=== PATIENT | female | born 1955 | race Hispanic/Latino ===

== ENCOUNTER 2019-06-09 18:29 | Inpatient (IN) | payer MEDICARE ==
--- NOTE | 2019-06-09 20:14 | Emergency Department Report ---
ED General Adult HPI - General Chief complaint: Recheck/Abnormal Lab/Rx Stated complaint: LAB WORK ABNORMAL Time Seen by Provider: 06/09/19 20:02 Source: patient, EMS Mode of arrival: Stretcher Limitations: No Limitations - History of Present Illness Initial comments: Patient is 64 years old female with history of hypertension, diabetes and chronic kidney disease. Patient also had history of coronary artery disease. Patient brought to the emergency room from [facility] for evaluation of abnormal labs. EMS did not bring any information about patient abnormal labs and said it was BUN creatinine was high. Patient is sitting comfortably in no acute distress. Patient is alert, oriented x3. Patient denied any symptoms. Patient specifically denies any chest pain, shortness of breath, cough fever chills. - Related Data Home Medications Medication Instructions Recorded Confirmed Last Taken Aspirin [Aspirin BABY CHEW TAB] 81 mg PO QDAY 06/10/19 06/10/19 Unknown Gabapentin [Neurontin] 400 mg PO BID 06/10/19 06/10/19 Unknown amLODIPine [Norvasc] 5 mg PO DAILY 06/10/19 06/10/19 Unknown cloNIDine [Catapres] 0.2 mg PO BID 06/10/19 06/10/19 Unknown Allergies Allergy/AdvReac Type Severity Reaction Status Date / Time No Known Allergies Allergy Unverified 06/09/19 18:40 ED Review of Systems ROS: Stated complaint: LAB WORK ABNORMAL Other details as noted in HPI Comment: All other systems reviewed and negative Constitutional: denies: chills, fever Respiratory: denies: cough, shortness of breath, SOB with exertion Cardiovascular: denies: chest pain Gastrointestinal: denies: abdominal pain, nausea, vomiting, diarrhea, hematemesis, melena, hematochezia Genitourinary: denies: urgency Musculoskeletal: denies: back pain Neurological: denies: headache, weakness, numbness, paresthesias, confusion, ab normal gait ED Past Medical Hx - Past Medical History Previous Medical History?: Yes Hx Hypertension: Yes Hx Heart Attack/AMI: Yes Hx Diabetes: Yes Hx Renal Disease: Yes Additional medical history: Rheumatoid Arthritis - Social History Smoking Status: Never Smoker Substance Use Type: None - Medications Home Medications: Home Medications Medication Instructions Recorded Confirmed Last Taken Type Aspirin [Aspirin BABY CHEW TAB] 81 mg PO QDAY 06/10/19 06/10/19 Unknown History Gabapentin [Neurontin] 400 mg PO BID 06/10/19 06/10/19 Unknown History amLODIPine [Norvasc] 5 mg PO DAILY 06/10/19 06/10/19 Unknown History cloNIDine [Catapres] 0.2 mg PO BID 06/10/19 06/10/19 Unknown History ED Physical Exam - General Limitations: No Limitations General appearance: alert, in no apparent distress - Head Head exam: Present: atraumatic, normocephalic, normal inspection - Eye Eye exam: Present: normal appearance, PERRL - ENT ENT exam: Present: normal exam, normal orophraynx, mucous membranes moist - Neck Neck exam: Present: normal inspection, full ROM. Absent: tenderness, meningismus, lymphadenopathy, thyromegaly - Respiratory Respiratory exam: Present: normal lung sounds bilaterally - Cardiovascular Cardiovascular Exam: Present: regular rate, normal rhythm, normal heart sounds - GI/Abdominal GI/Abdominal exam: Present: soft, normal bowel sounds. Absent: distended, tenderness, guarding, rebound, rigid, organomegaly, mass, bruit, pulsatile mass, hernia - Extremities Exam Extremities exam: Present: normal inspection, full ROM, normal capillary refill. Absent: pedal edema, calf tenderness - Back Exam Back exam: Present: normal inspection, full ROM. Absent: CVA tenderness (R), CVA tenderness (L) - Neurological Exam Neurological exam: Present: alert, oriented X3, CN II-XII intact, normal gait, reflexes normal - Psychiatric Psychiatric exam: Present: normal mood - Skin Skin exam: Present: warm, intact, normal color ED Course Vital Signs 06/09/19 06/09/19 06/09/19 20:05 20:46 21:45 Temperature 97.9 F Pulse Rate 79 86 81 Respiratory 12 12 12 Rate Blood Pressure 173/77 172/76 Blood Pressure 168/82 [Left] O2 Sat by Pulse 96 96 97 Oximetry 06/09/19 06/09/19 06/09/19 22:15 23:00 23:15 Temperature Pulse Rate 82 88 81 Respiratory 12 14 13 Rate Blood Pressure 171/73 169/76 162/75 Blood Pressure [Left] O2 Sat by Pulse 97 96 94 Oximetry 06/09/19 06/09/19 06/10/19 23:30 23:45 00:00 Temperature Pulse Rate 82 81 88 Respiratory 12 12 13 Rate Blood Pressure 169/83 168/85 168/85 Blood Pressure [Left] O2 Sat by Pulse 96 96 95 Oximetry ED Medical Decision Making - Lab Data Result diagrams: 06/09/19 20:59 06/09/19 20:59 - EKG Data -: EKG Interpreted by Me EKG shows normal: sinus rhythm Rate: normal - Radiology Data Radiology results: report reviewed - Medical Decision Making Patient is 64 years old female with history of hypertension, diabetes and chronic kidney disease. Patient also had history of coronary artery disease. Patient brought to the emergency room from [facility] for evaluation of abnormal labs. EMS did not bring any information about patient abnormal labs and said it was BUN creatinine was high. Patient is sitting comfortably in no acute distress. Patient is alert, oriented x3. Patient denied any symptoms. Patient specifically denies any chest pain, shortness of breath, cough fever chills. Patient labs showed a creatinine of 6.1 and BUN of 71 and a potassium of 5.1. Patient discussed with dramatic coach Dr. Reji Saravia, he advised to admit patient to the hospital, continue gentle hydration and Kayexalate 15 g p.o. and patient to get an ultrasound of the kidney tomorrow. I discussed the patient with Dr. Janeth Emanuel, she agreed to admit the patient to medical service for further management. Critical Care Time: Yes Critical care time in (mins) excluding proc time.: 30 Critical care attestation.: If time is entered above; I have spent that time in minutes in the direct care of this critically ill patient, excluding procedure time. ED Disposition Clinical Impression: Acute renal failure Disposition: 09 OP ADMIT IP TO THIS HOSP Is pt being admited?: Yes Condition: Stable
[2019-06-09 21:16] LABS: Basophils # (Auto) 0.1 K/mm3 (0.0-0.1); Basophils % (Auto) 0.7 % (0.0-1.8); Eosinophils # (Auto) 0.3 K/mm3 (0.0-0.4); Hematocrit 33.7 % (30.3-42.9); Hemoglobin 11.3 gm/dl (10.1-14.3); Lymphocytes % (Auto) 10.6 % (13.4-35.0); Mean Corpuscular HGB Conc 33 % (30-34); Mean Corpuscular Volume 90 fl (79-97); Monocytes # (Auto) 0.7 K/mm3 (0.0-0.8); Monocytes % (Auto) 7.2 % (0.0-7.3); Platelet Count 227 K/mm3 (140-440); Red Blood Count 3.76 M/mm3 (3.65-5.03); Red Cell Distribution Width 14.5 % (13.2-15.2)
[2019-06-09 21:40] LABS: Albumin 2.8 g/dL (3.9-5); Calcium 8.3 mg/dL (8.4-10.2)
[2019-06-09 22:56] LABS: Bilirubin,Urine NEG (Negative); Blood,Urine SM (Negative); Color,Urine Straw (Yellow); Urobilinogen,Urine < 2.0 mg/dL (<2.0)
[2019-06-09] MEDS ORDERED: SODIUM POLYSTYRENE 15 GM/60 ML ORAL LIQD PO ONE (23:51)
[2019-06-09] MEDS ORDERED: SODIUM CHLORIDE 0.9% 1000 ML 1,000 ML IV ONE (23:51)
--- NOTE | 2019-06-09 23:54 | History and Physical Report ---
History of Present Illness History of present illness: 64-year-old woman history of hypertension, diabetes, coronary artery disease, hyperlipidemia, chronic kidney disease was [facility] the [facility] for [facility] labs. There was a change in her renal function, she does not know her baseline creatinine. The patient denies any complaints, she will be admitted for acute on chronic renal failure Review Of Systems: Constitutional: no weight loss, fever, chills Ears, eyes, nose, mouth and throat: no nasal congestion, no nasal discharge, no sinus pressure, blurry vision, diplopia Neck: No neck pain or rigidity. Cardiovascular: No palpitations, chest pain Respiratory: No shortness of breath, cough Gastrointestinal: No hematochezia, abdominal pain Genitourinary : no dysuria, frequency Musculoskeletal: no muscle ache , joint pain Integumentary: no rash, no pruritis Neurological: no parathesias, focal weakness Endocrine: no cold or heat intolerance, no polyuria or polydipsia Hematologic/Lymphatic: no easy bruising, no easy bleeding, no gland swelling Allergic/Immunologic: no urticaria, no angioedema. PAST MEDICAL HISTORY: hypertension, diabetes, coronary artery disease, hyperlipidemia, chronic kidney diseas PAST SURGICAL HISTORY: Tonsillectomy, surgery on leg SOCIAL HISTORY: Denies alcohol, tobacco, drugs FAMILY HISTORY: Hypertension Medications and Allergies Allergies Allergy/AdvReac Type Severity Reaction Status Date / Time No Known Allergies Allergy Unverified 06/09/19 18:40 Home Medications Medication Instructions Recorded Confirmed Last Taken Type Aspirin [Aspirin BABY CHEW TAB] 81 mg PO QDAY 06/10/19 06/10/19 Unknown History Gabapentin [Neurontin] 400 mg PO BID 06/10/19 06/10/19 Unknown History amLODIPine [Norvasc] 5 mg PO DAILY 06/10/19 06/10/19 Unknown History cloNIDine [Catapres] 0.2 mg PO BID 06/10/19 06/10/19 Unknown History Active Meds: Active Medications Sodium Chloride (Nacl 0.9% 1000 Ml) 1,000 mls @ 125 mls/hr IV ONCE ONE Stop: 06/10/19 07:50 Exam - Physical Exam Narrative exam: Gen. appearance: Patient lying in bed, no apparent distress HEENT: Normocephalic, atraumatic, pupils equally round and reactive to light, extraocular movement intact, and no sclericterus,. No JVD or thyromegaly or nodu le,neck supple, no carotid bruit ,mucous membranes moist, no exudate or erythema Heart: S1, S2, regular rate and rhythm Lungs: Clear bilaterally, breathing comfortable Abdomen: Positive bowel sounds, nontender, nondistended, no organomegaly Extremity: no edema, cyanosis, clubbing Skin: No rash, nodules, warm, dry Neuro: speech is fluent, cranial nerves II to XII intact motor and sensory intact - Constitutional Vitals: Temp Pulse Resp BP Pulse Ox 97.9 F 79 12 168/82 96 06/09/19 20:05 06/09/19 20:05 06/09/19 20:05 06/09/19 20:05 06/09/19 20:05 Results - Labs CBC & Chem 7: 06/09/19 20:59 06/09/19 20:59 Labs: Abnormal lab results 06/09/19 06/09/19 06/09/19 Range/Units 20:59 20:59 22:13 Lymph % (Auto) 10.6 L (13.4-35.0) % Lymph # 1.0 L (1.2-5.4) K/mm3 Seg Neutrophils % 78.5 H (40.0-70.0) % Potassium 5.1 H (3.6-5.0) mmol/L Carbon Dioxide 19 L (22-30) mmol/L BUN 71 H (7-17) mg/dL Creatinine 6.1 H (0.7-1.2) mg/dL Calcium 8.3 L (8.4-10.2) mg/dL Total Protein 6.2 L (6.3-8.2) g/dL Albumin 2.8 L (3.9-5) g/dL Urine WBC (Auto) 8.0 H (0.0-6.0) /HPF Assessment and Plan Assessment Acute on chronic renal failure Check ultrasound of the kidneys, consult renal, start IV fluids Pneumonia Start IV Levaquin, follow culture Hyperkalemia status post Kayexalate, follow potassium level Diabetes Check fingersticks initiate insulin sliding scale Hypertension Continue appropriate outpatient medications DVT prophylax
--- NOTE | 2019-06-10 00:42 | XRay Report ---
CHEST 1 VIEW INDICATION: DYSPNEA. COMPARISON: None. FINDINGS: Support devices: None. Heart: Normal. Lungs/Pleura: There are small bilateral pleural effusions. Adjacent bibasilar opacities may be due to compressive atelectasis but are nonspecific. Upper lungs are clear. No pneumothorax. IMPRESSION: 1. Bibasilar pleural-parenchymal opacities, right greater than left. Signer Name: Prince Altman MD Signed: 06/10/2019 12:37 AM Workstation Name: [id number]
[2019-06-10] MEDS ORDERED: ACETAMINOPHEN 325 MG TAB PO PRN (02:20)
[2019-06-10] MEDS ORDERED: oxyCODONE /ACETAMINOPHEN 5-325MG TAB PO PRN (02:20)
[2019-06-10] MEDS ORDERED: ONDANSETRON 4 MG/2 ML INJ IV PRN (02:20)
[2019-06-10] MEDS: cefTRIAXone/NS 1 GM/50 ML 1 GM/50 ML BAG IV SCH ×2 (03:54→09:42)
[2019-06-10] MEDS ORDERED: DEXTROSE 50% IN WATER (25GM) 50 ML SYRINGE IV PRN (04:10)
[2019-06-10] MEDS ORDERED: SODIUM CHLORIDE 0.9% 1000 ML 1,000 ML IV SCH (04:30)
[2019-06-10 05:47] LABS: Basophils # (Auto) 0.1 K/mm3 (0.0-0.1); Basophils % (Auto) 0.7 % (0.0-1.8); Eosinophils # (Auto) 0.3 K/mm3 (0.0-0.4); Hematocrit 32.8 % (30.3-42.9); Hemoglobin 10.9 gm/dl (10.1-14.3); Lymphocytes # (Auto) 1.1 K/mm3 (1.2-5.4); Lymphocytes % (Auto) 11.2 % (13.4-35.0); Mean Corpuscular HGB Conc 33 % (30-34); Mean Corpuscular Volume 89 fl (79-97); Monocytes # (Auto) 0.8 K/mm3 (0.0-0.8); Monocytes % (Auto) 8.9 % (0.0-7.3); Platelet Count 205 K/mm3 (140-440); Red Blood Count 3.68 M/mm3 (3.65-5.03); Red Cell Distribution Width 14.4 % (13.2-15.2)
[2019-06-10 06:05] LABS: Calcium 8.2 mg/dL (8.4-10.2)
[2019-06-10] MEDS: INSULIN LISPRO 100 UNIT/ML SUB-Q SCH ×4 (08:25→21:31)
[2019-06-10] MEDS: amLODIPine 5 MG TAB PO SCH (09:38)
[2019-06-10] MEDS: ENOXAPARIN 30 MG/0.3 ML INJ SUB-Q SCH (09:39)
[2019-06-10] MEDS: cloNIDine 0.2 MG TAB PO SCH ×2 (09:39→21:29)
[2019-06-10] MEDS ORDERED: GABAPENTIN 400 MG CAP PO SCH (10:00)
[2019-06-10] MEDS ORDERED: ASPIRIN 81 MG TAB CHEW PO SCH (10:00)
--- NOTE | 2019-06-10 12:31 | Progress Note ---
Assessment and Plan Assessment and plan: Acute on chronic renal failure Check ultrasound of the kidneys, Nephrology consulted Cont iv fluids Bibasilar opacities To r/o pneumonia Cont IV Levaquin, follow culture Hyperkalemia resolved, status post Kayexalate, Diabetes Check fingersticks initiate insulin sliding scale Hypertension Continue appropriate outpatient medications DVT prophylax History Interval history: Patient sent in because of abnormal renal function Hospitalist Physical - Physical exam Narrative exam: GEN: Not in acute distress, lying in bed, obese HEENT: Normocephalic, atraumatic, Neck: supple, No JVD Lungs: Clear to auscultation ,no wheeze, heart;S1 and S2 reg, no murmurs, rubs or gallop Abd:soft, mild tender, mild distended, few bowel sounds Ext: No edema, no clubbing, no cyanosis Neuro: Awake,alert, oriented X 3, no focal neurological signs - Constitutional Vitals: Temp Pulse Resp BP Pulse Ox 98.3 F 83 18 179/80 95 06/10/19 08:35 06/10/19 10:38 06/10/19 04:06 06/10/19 08:35 06/10/19 08:35 Results - Labs CBC & Chem 7: 06/11/19 05:37 06/11/19 05:37 Labs: Laboratory Last Values WBC 9.4 K/mm3 (4.5-11.0) 06/10/19 05:28 RBC 3.68 M/mm3 (3.65-5.03) 06/10/19 05:28 Hgb 10.9 gm/dl (10.1-14.3) 06/10/19 05:28 Hct 32.8 % (30.3-42.9) 06/10/19 05:28 MCV 89 fl (79-97) 06/10/19 05:28 MCH 30 pg (28-32) 06/10/19 05:28 MCHC 33 % (30-34) 06/10/19 05:28 RDW 14.4 % (13.2-15.2) 06/10/19 05:28 Plt Count 205 K/mm3 (140-440) 06/10/19 05:28 Lymph % (Auto) 11.2 % (13.4-35.0) L 06/10/19 05:28 Hughes % (Auto) 8.9 % (0.0-7.3) H 06/10/19 05:28 Eos % (Auto) 3.0 % (0.0-4.3) 06/10/19 05:28 Baso % (Auto) 0.7 % (0.0-1.8) 06/10/19 05:28 Lymph # 1.1 K/mm3 (1.2-5.4) L 06/10/19 05:28 Hughes # 0.8 K/mm3 (0.0-0.8) 06/10/19 05:28 Eos # 0.3 K/mm3 (0.0-0.4) 06/10/19 05:28 Baso # 0.1 K/mm3 (0.0-0.1) 06/10/19 05:28 Seg Neutrophils % 76.2 % (40.0-70.0) H 06/10/19 05:28 Seg Neutrophils # 7.1 K/mm3 (1.8-7.7) 06/10/19 05:28 Sodium 143 mmol/L (137-145) 06/10/19 05:28 Potassium 4.6 mmol/L (3.6-5.0) 06/10/19 05:28 Chloride 108.4 mmol/L (98-107) H 06/10/19 05:28 Carbon Dioxide 22 mmol/L (22-30) 06/10/19 05:28 Anion Gap 17 mmol/L 06/10/19 05:28 BUN 74 mg/dL (7-17) H 06/10/19 05:28 Creatinine 5.9 mg/dL (0.7-1.2) H 06/10/19 05:28 Estimated GFR 7 ml/min 06/10/19 05:28 BUN/Creatinine Ratio 13 % 06/10/19 05:28 Glucose 102 mg/dL (65-100) H 06/10/19 05:28 POC Glucose 98 (70-105) 06/10/19 12:36 Calcium 8.2 mg/dL (8.4-10.2) L 06/10/19 05:28 Total Bilirubin 0.20 mg/dL (0.1-1.2) 06/09/19 20:59 AST 9 units/L (5-40) 06/09/19 20:59 ALT 8 units/L (7-56) 06/09/19 20:59 Alkaline Phosphatase 62 units/L (35-129) 06/09/19 20:59 Total Protein 6.2 g/dL (6.3-8.2) L 06/09/19 20:59 Albumin 2.8 g/dL (3.9-5) L 06/09/19 20:59 Albumin/Globulin Ratio 0.8 % 06/09/19 20:59 Urine Color Straw (Yellow) 06/09/19 22:13 Urine Turbidity Clear (Clear) 06/09/19 22:13 Urine pH 5.0 (5.0-7.0) 06/09/19 22:13 Ur Specific Silver Plume 1.014 (1.003-1.030) 06/09/19 22:13 Urine Protein 100 mg/dl mg/dL (Negative) 06/09/19 22:13 Urine Glucose (UA) 50 mg/dL (Negative) 06/09/19 22:13 Urine Ketones Neg mg/dL (Negative) 06/09/19 22:13 Urine Blood Sm (Negative) 06/09/19 22:13 Urine Nitrite Neg (Negative) 06/09/19 22:13 Urine Bilirubin Neg (Negative) 06/09/19 22:13 Urine Urobilinogen < 2.0 mg/dL (<2.0) 06/09/19 22:13 Ur Leukocyte Esterase Neg (Negative) 06/09/19 22:13 Urine WBC (Auto) 8.0 /HPF (0.0-6.0) H 06/09/19 22:13 Urine RBC (Auto) 2.0 /HPF (0.0-6.0) 06/09/19 22:13 U Epithel Cells (Auto) 1.0 /HPF (0-13.0) 06/09/19 22:13 Active Medications - Current Medications Current Medications: Generic Name Dose Route Start Last Admin Trade Name Freq PRN Reason Stop Dose Admin Acetaminophen 650 mg 06/10/19 02:20 Tylenol PO Q4H PRN Pain MILD(1-3)/Fever >100.5/MISHRA Amlodipine Besylate 5 mg 06/10/19 08:00 06/10/19 09:38 Amlodipine PO 5 mg DAILY@0800 JONES Administration Aspirin 81 mg 06/10/19 10:00 06/10/19 09:39 Baby Aspirin PO 81 mg QDAY JONES Administration Clonidine HCl 0.2 mg 06/10/19 10:00 06/10/19 09:39 Catapres PO 0.2 mg BID JONES Administration Dextrose 0 ml 06/10/19 04:10 D50w (25gm) Syringe IV Q30MIN PRN Hypoglycemia Protocol Enoxaparin Sodium 30 mg 06/10/19 10:00 06/10/19 09:39 Enoxaparin SUB-Q 30 mg QDAY JONES Administration Gabapentin 400 mg 06/10/19 10:00 06/10/19 09:39 Gabapentin PO 400 mg BID JONES Administration Sodium Chloride 1,000 mls @ 50 mls/hr 06/09/19 23:51 06/10/19 00:12 Nacl 0.9% 1000 Ml IV 06/10/19 19:50 125 mls/hr ONCE ONE Administration Ceftriaxone Sodium 1 gm in 50 mls @ 100 mls/hr 06/10/19 02:22 06/10/19 09:42 Rocephin/Ns 1 Gm/50 Ml IV 100 mls/hr Q24HR JONES Administration Protocol Sodium Chloride 1,000 mls @ 100 mls/hr 06/10/19 04:30 Nacl 0.9% 1000 Ml IV DIRECT JONES Insulin Human Lispro 0 unit 06/10/19 07:30 06/10/19 12:26 Humalog SUB-Q Not Given ACHS [facility] Protocol Ondansetron HCl 4 mg 06/10/19 02:20 Zofran IV Q8H PRN Nausea And Vomiting Oxycodone/Acetaminophen 1 tab 06/10/19 02:20 Percocet 5/325 PO Q6H PRN Pain, Moderate (4-6) Sodium Chloride 10 ml 06/10/19 10:00 06/10/19 09:39 Sodium Chloride Flush Syringe 10 Ml IV 10 ml BID JONES Administration Sodium Chloride 10 ml 06/10/19 02:20 Sodium Chloride Flush Syringe 10 Ml IV PRN PRN LINE FLUSH Nutrition/Malnutrition Assess - Dietary Evaluation Nutrition/Malnutrition Findings: Nutrition Notes Start: 06/10/19 12:16 Freq: Status: Active Protocol: Document 06/10/19 12:16 LM (Rec: 06/10/19 12:17 LM [id number]) Nutrition Notes 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 Juancarlos score of 22. Nutrition Intervention Revisit per MD consult or patient Sign Off request:
--- NOTE | 2019-06-10 12:55 | Consultation ---
History of Present Illness - Reason for Consult Consult date: 06/10/19 - History of Present Illness This is a 64 y/o F with PMH of HTN, DM type 2 non-insulin, hyperlipidemia, and CKD (? stage) who presented from [facility] with abnormal lab. Pt was found to have a SCr level of 6.1 on admission, today's SCr level still high at 5.9. CXR showed bibasilar pleural parenchymal opacities, right > left. Pt being treated for PNA, on Abx and IV fluids. Pt reports being told she has CKD Stage 3 about 10 yrs ago, isn't followed by a gray tender as an outpatient. Pt states she hasn't followed up with a gray tender for about 10 yrs and hasn't seen a PCP for a couple of years as well. Pt also reports taking OTC ibuprofen for a couple of years. We were consulted to evaluate this pt who has LEONOR on CKD. Medications and Allergies Allergies Allergy/AdvReac Type Severity Reaction Status Date / Time No Known Allergies Allergy Unverified 06/09/19 18:40 Home Medications Medication Instructions Recorded Confirmed Last Taken Type Aspirin [Aspirin BABY CHEW TAB] 81 mg PO QDAY 06/10/19 06/10/19 Unknown History Gabapentin [Neurontin] 400 mg PO BID 06/10/19 06/10/19 Unknown History amLODIPine [Norvasc] 5 mg PO DAILY 06/10/19 06/10/19 Unknown History cloNIDine [Catapres] 0.2 mg PO BID 06/10/19 06/10/19 Unknown History Active Meds: Active Medications Acetaminophen (Tylenol) 650 mg PO Q4H PRN PRN Reason: Pain MILD(1-3)/Fever >100.5/MISHRA Amlodipine Besylate (Amlodipine) 5 mg PO DAILY@0800 [facility] Last Admin: 06/10/19 09:38 Dose: 5 mg Documented by: Aspirin (Baby Aspirin) 81 mg PO QDAY [facility] Last Admin: 06/10/19 09:39 Dose: 81 mg Documented by: Clonidine HCl (Catapres) 0.2 mg PO BID [facility] Last Admin: 06/10/19 09:39 Dose: 0.2 mg Documented by: Dextrose (D50w (25gm) Syringe) 0 ml IV Q30MIN PRN; Protocol PRN Reason: Hypoglycemia Enoxaparin Sodium (Enoxaparin) 30 mg SUB-Q QDAY [facility] Last Admin: 06/10/19 09:39 Dose: 30 mg Documented by: Gabapentin (Gabapentin) 400 mg PO BID [facility] Last Admin: 06/10/19 09:39 Dose: 400 mg Documented by: Sodium Chloride (Nacl 0.9% 1000 Ml) 1,000 mls @ 50 mls/hr IV ONCE ONE Stop: 06/10/19 19:50 Last Admin: 06/10/19 00:12 Dose: 125 mls/hr Documented by: Ceftriaxone Sodium (Rocephin/Ns 1 Gm/50 Ml) 1 gm in 50 mls @ 100 mls/hr IV Q24HR [facility]; Protocol Last Admin: 06/10/19 09:42 Dose: 100 mls/hr Documented by: Sodium Chloride (Nacl 0.9% 1000 Ml) 1,000 mls @ 100 mls/hr IV DIRECT JONES Insulin Human Lispro (Humalog) 0 unit SUB-Q ACHS [facility]; Protocol Last Admin: 06/10/19 12:26 Dose: Not Given Documented by: Ondansetron HCl (Zofran) 4 mg IV Q8H PRN PRN Reason: Nausea And Vomiting Oxycodone/Acetaminophen (Percocet 5/325) 1 tab PO Q6H PRN PRN Reason: Pain, Moderate (4-6) Sodium Chloride (Sodium Chloride Flush Syringe 10 Ml) 10 ml IV BID [facility] Last Admin: 06/10/19 09:39 Dose: 10 ml Documented by: Sodium Chloride (Sodium Chloride Flush Syringe 10 Ml) 10 ml IV PRN PRN PRN Reason: LINE FLUSH Review of Systems Constitutional: fatigue, weakness Cardiovascular: leg edema, no chest pain, no shortness of breath Respiratory: cough with sputum, no shortness of breath Gastrointestinal: no abdominal pain, no nausea, no vomiting, no diarrhea, no constipation Musculoskeletal: other (BLE swelling) Exam - Vital Signs Vital signs: Vital Signs Temp Pulse Resp BP Pulse Ox 97.9 F 79 12 168/82 96 06/09/19 20:05 06/09/19 20:05 06/09/19 20:05 06/09/19 20:05 06/09/19 20:05 - General Appearance General appearance: well-developed EENT: ATNC Neck: Present: neck supple Respiratory: Decreased Breath Sounds Heart: regular, S1S2 Gastrointestinal: Present: normoactive bowel sounds. Absent: tenderness Integumentary: warm and dry Neurologic: alert and oriented x3 Musculoskeletal: Present: other (2+ edema to BLE) Psychiatric: cooperative Results - Lab Results 06/10/19 05:28 06/10/19 05:28 Most recent lab results Calcium 8.2 mg/dL (8.4-10.2) L 06/10/19 05:28 Assessment and Plan Acute Kidney Injury secondary to ATN vs prerenal azotemia vs progression of CKD, ? AIN from NSAIDs, r/o obstruction Pneumonia Non Anion Gap Metabolic Acidosis Hyperkalemia Diabetes Mellitus Type 2 non-insulin dependent Hypertensive Urgency Plan: - Renal function reviewed, SCr level was 5.9 today, yesterday's SCr level was 6.1 - Exact Scr baseline unknown - No acute indication for initiation of HD today, but will monitor renal function daily - Pt reports being told she had CKD Stage 3 about 10 yrs ago, may have progression of CKD, hx of HTN x 20 yrs and DM x 10 yrs, suspect underlying CKD due to HTN and DM. - Pt also reports taking OTC ibuprofen (1 tablet daily) for a couple of years for generalized bodyaches - Decrease 0.9% NS infusion to 50 ml/hr for now given BLE swelling and elevated HTN - Obtain urine lytes/protein - Check urine eosinophils - Avoid nephrotoxic agents such as NSAIDs (educated pt on avoiding NSAIDs such as ibuprofen given risk of LEONOR) - Will renally dosing Gabapentin given worsening renal function, renal dose of 100-200 mg total daily dose for now, discussed with pharmacist. I d/w hospitalist, caroline with decreasing gabapentin to 200 mg once a day. - Renal US results pending - S/p kayexalate for hyperkalemia - Low potassium diet - Renally dose meds - Strict intake and output - Light Catheter: No - Renal plan d/w Dr Canseco Case d/w Dr Moraes
[2019-06-10] MEDS: SODIUM CHLORIDE 0.9% 1000 ML 1,000 ML IV SCH (18:45)
--- NOTE | 2019-06-10 18:52 | Ultrasound Report ---
ULTRASOUND RENAL INDICATION: arf. COMPARISON: No relevant prior imaging study available. FINDINGS: RIGHT KIDNEY: Size: 13.1 cm. Echogenicity: Normal. Cortical thickness: Normal. Stones: None. Hydronephrosis: Mild. Cyst or mass: There are 2 cysts in the right kidney which measure approximately 2.3 and 2.6 cm respec tively. LEFT KIDNEY: Size: 12.1 cm. Echogenicity: Normal. Cortical thickness: Normal. Stones: None. Hydronephrosis: None. Cyst or mass: Small cysts are noted in the lower pole. Urinary Bladder: No significant abnormality. Free Fluid: None. Additional Findings: None. IMPRESSION 1. There is mild right hydronephrosis. . 2. There are bilateral renal cysts. Signer Name: Edmund Lugo MD Signed: 06/10/2019 6:47 PM Workstation Name: [id number]
[2019-06-10 20:58] LABS: Creatinine,Urine 69.4 mg/dL (0.1-20.0)
[2019-06-10 21:29] LABS: Microalbumin/Creatinine Ratio 86.4 ug/mg
[2019-06-11 06:30] LABS: Hematocrit 32.7 % (30.3-42.9); Hemoglobin 10.8 gm/dl (10.1-14.3); Mean Corpuscular HGB Conc 33 % (30-34); Mean Corpuscular Volume 90 fl (79-97); Platelet Count 192 K/mm3 (140-440); Red Blood Count 3.63 M/mm3 (3.65-5.03); Red Cell Distribution Width 14.5 % (13.2-15.2)
[2019-06-11 06:48] LABS: Calcium 8.1 mg/dL (8.4-10.2)
--- NOTE | 2019-06-11 08:28 | Progress Note ---
Assessment and Plan Acute Kidney Injury secondary to ATN vs prerenal azotemia vs progression of CKD, ? AIN from NSAIDs, r/o obstruction Pneumonia Non Anion Gap Metabolic Acidosis Hyperkalemia Diabetes Mellitus Type 2 non-insulin dependent Hypertensive Urgency Plan: - Cr is slowly trending down - note to have +ve urine eos, will hold ASA and check secondary GN and vasculitis work up, if no improvement kidney biopsy Saturday - mild right hydronephrosis on renal US, urology consulted - Exact Scr baseline unknown - No acute indication for initiation of HD today, but will monitor renal function daily - Pt reports being told she had CKD Stage 3 about 10 yrs ago, may have progression of CKD, hx of HTN x 20 yrs and DM x 10 yrs, suspect underlying CKD due to HTN and DM. - Renal US results pending - Low potassium diet - Renally dose meds - Strict intake and output - Light Catheter: No Lew Torres MD [phone] Subjective Date of service: 06/11/19 Principal diagnosis: LEONOR Interval history: denies acute issues Objective - Vital Signs Vital signs: Vital Signs - 12hr 06/10/19 06/11/19 06/11/19 21:29 01:04 05:16 Temperature 98.3 F 98.6 F Pulse Rate 83 78 78 Respiratory 16 16 Rate Blood Pressure 174/82 166/79 162/81 O2 Sat by Pulse 93 94 Oximetry 06/11/19 08:08 Temperature Pulse Rate Respiratory 18 Rate Blood Pressure O2 Sat by Pulse Oximetry - General Appearance General appearance: well-developed, well-nourished, appears stated age EENT: ATNC, PERRL, mucous membranes moist Neck: no JVD, no carotid bruit Respiratory: Present: Clear to Ascultation. Absent: Rales, Ronchi Cardiology: regular, S1S2 Gastrointestinal: normoactive bowel sounds, no tenderness, no distended Integumentary: no rash, warm and dry Neurologic: no focal deficit, no asterixis Musculoskeletal: other (no edema in BLE) Psychiatric: cooperative - Lab 06/11/19 05:37 06/11/19 05:37 Most recent lab results Calcium 8.1 mg/dL (8.4-10.2) L 06/11/19 05:37 Magnesium 1.80 mg/dL (1.7-2.3) 06/11/19 05:37 Urine Creatinine 69.4 mg/dL (0.1-20.0) H 06/10/19 20:39 Urine Sodium 58 mmol/L 06/10/19 20:39 Urine Total Protein 97 mg/dL (5-11.8) H 06/10/19 20:39 Medications & Allergies - Medications Allergies/Adverse Reactions: Allergies No Known Allergies Allergy (Unverified 06/09/19 18:40) Home Medications: Home Medications Medication Instructions Recorded Confirmed Last Taken Type Aspirin [Aspirin BABY CHEW TAB] 81 mg PO QDAY 06/10/19 06/10/19 Unknown History Gabapentin [Neurontin] 400 mg PO BID 06/10/19 06/10/19 Unknown History amLODIPine [Norvasc] 5 mg PO DAILY 06/10/19 06/10/19 Unknown History cloNIDine [Catapres] 0.2 mg PO BID 06/10/19 06/10/19 Unknown History Active Medications: Generic Name Dose Route Start Last Admin Trade Name Freq PRN Reason Stop Dose Admin Acetaminophen 650 mg 06/10/19 02:20 Tylenol PO Q4H PRN Pain MILD(1-3)/Fever >100.5/MISHRA Amlodipine Besylate 5 mg 06/10/19 08:00 06/10/19 09:38 Amlodipine PO 5 mg DAILY@0800 JONES Administration Clonidine HCl 0.2 mg 06/10/19 10:00 06/10/19 21:29 Catapres PO 0.2 mg BID JONES Administration Dextrose 0 ml 06/10/19 04:10 D50w (25gm) Syringe IV Q30MIN PRN Hypoglycemia Protocol Enoxaparin Sodium 30 mg 06/10/19 10:00 06/10/19 09:39 Enoxaparin SUB-Q 30 mg QDAY JONSE Administration Gabapentin 200 mg 06/11/19 10:00 Gabapentin PO DAILY JONES Ceftriaxone Sodium 1 gm in 50 mls @ 100 mls/hr 06/10/19 02:22 06/10/19 09:42 Rocephin/Ns 1 Gm/50 Ml IV 100 mls/hr Q24HR JONES Administration Protocol Sodium Chloride 1,000 mls @ 50 mls/hr 06/10/19 14:15 06/10/19 18:45 Nacl 0.9% 1000 Ml IV 50 mls/hr DIRECT JONES Administration Insulin Human Lispro 0 unit 06/10/19 07:30 06/10/19 21:31 Humalog SUB-Q Not Given ACHS [facility] Protocol Ondansetron HCl 4 mg 06/10/19 02:20 Zofran IV Q8H PRN Nausea And Vomiting Oxycodone/Acetaminophen 1 tab 06/10/19 02:20 Percocet 5/325 PO Q6H PRN Pain, Moderate (4-6) Sodium Chloride 10 ml 06/10/19 10:00 06/10/19 21:32 Sodium Chloride Flush Syringe 10 Ml IV 10 ml BID JONES Administration Sodium Chloride 10 ml 06/10/19 02:20 Sodium Chloride Flush Syringe 10 Ml IV PRN PRN LINE FLUSH
[2019-06-11] MEDS: amLODIPine 5 MG TAB PO SCH (08:38)
[2019-06-11] MEDS: INSULIN LISPRO 100 UNIT/ML SUB-Q SCH ×4 (08:39→22:19)
[2019-06-11] MEDS: cloNIDine 0.2 MG TAB PO SCH ×2 (09:02→22:15)
[2019-06-11] MEDS: GABAPENTIN 100 MG CAP PO SCH (09:02)
[2019-06-11] MEDS: cefTRIAXone/NS 1 GM/50 ML 1 GM/50 ML BAG IV SCH (09:02)
[2019-06-11] MEDS: ENOXAPARIN 30 MG/0.3 ML INJ SUB-Q SCH (09:03)
--- NOTE | 2019-06-11 11:58 | Progress Note ---
Assessment and Plan Assessment and plan: Acute on chronic renal failure due to ATN versus vasomotor nephropathy Nephrology consulted, following Cont iv fluids Bibasilar opacities due to atelectasis,pleural effusion Patient does not have pneumonia-ruled out Bilateral small pleural effusions Monitor Hyperkalemia resolved, status post Kayexalate, Diabetes Check fingersticks qac and hs Hypertension Monitor BP History Interval history: Patient sent in because of abnormal renal function Hospitalist Physical - Physical exam Narrative exam: GEN: Not in acute distress, lying in bed, obese HEENT: Normocephalic, atraumatic, Neck: supple, No JVD Lungs: Clear to auscultation ,no wheeze, heart;S1 and S2 reg, no murmurs, rubs or gallop Abd:soft, non tender, normal BS Ext: No edema, no clubbing, no cyanosis Neuro: Awake,alert, oriented X 3, no focal neurological signs - Constitutional Vitals: Temp Pulse Resp BP Pulse Ox 98.3 F 86 18 169/81 96 06/11/19 08:29 06/11/19 09:02 06/11/19 08:29 06/11/19 10:37 06/11/19 08:29 Results - Labs CBC & Chem 7: 06/11/19 05:37 06/11/19 05:37 Labs: Laboratory Last Values WBC 7.1 K/mm3 (4.5-11.0) 06/11/19 05:37 RBC 3.63 M/mm3 (3.65-5.03) L 06/11/19 05:37 Hgb 10.8 gm/dl (10.1-14.3) 06/11/19 05:37 Hct 32.7 % (30.3-42.9) 06/11/19 05:37 MCV 90 fl (79-97) 06/11/19 05:37 MCH 30 pg (28-32) 06/11/19 05:37 MCHC 33 % (30-34) 06/11/19 05:37 RDW 14.5 % (13.2-15.2) 06/11/19 05:37 Plt Count 192 K/mm3 (140-440) 06/11/19 05:37 Lymph % (Auto) 11.2 % (13.4-35.0) L 06/10/19 05:28 [place] % (Auto) 8.9 % (0.0-7.3) H 06/10/19 05:28 Eos % (Auto) 3.0 % (0.0-4.3) 06/10/19 05:28 Baso % (Auto) 0.7 % (0.0-1.8) 06/10/19 05:28 Lymph # 1.1 K/mm3 (1.2-5.4) L 06/10/19 05:28 [place] # 0.8 K/mm3 (0.0-0.8) 06/10/19 05:28 Eos # 0.3 K/mm3 (0.0-0.4) 06/10/19 05:28 Baso # 0.1 K/mm3 (0.0-0.1) 06/10/19 05:28 Seg Neutrophils % 76.2 % (40.0-70.0) H 06/10/19 05:28 Seg Neutrophils # 7.1 K/mm3 (1.8-7.7) 06/10/19 05:28 Sodium 144 mmol/L (137-145) 06/11/19 05:37 Potassium 4.2 mmol/L (3.6-5.0) 06/11/19 05:37 Chloride 109.9 mmol/L (98-107) H 06/11/19 05:37 Carbon Dioxide 19 mmol/L (22-30) L 06/11/19 05:37 Anion Gap 19 mmol/L 06/11/19 05:37 BUN 67 mg/dL (7-17) H 06/11/19 05:37 Creatinine 5.6 mg/dL (0.7-1.2) H 06/11/19 05:37 Estimated GFR 8 ml/min 06/11/19 05:37 BUN/Creatinine Ratio 12 % 06/11/19 05:37 Glucose 131 mg/dL (65-100) H 06/11/19 05:37 POC Glucose 89 (70-105) 06/11/19 08:41 Calcium 8.1 mg/dL (8.4-10.2) L 06/11/19 05:37 Magnesium 1.80 mg/dL (1.7-2.3) 06/11/19 05:37 Total Bilirubin 0.20 mg/dL (0.1-1.2) 06/09/19 20:59 AST 9 units/L (5-40) 06/09/19 20:59 ALT 8 units/L (7-56) 06/09/19 20:59 Alkaline Phosphatase 62 units/L (35-129) 06/09/19 20:59 Lactate Dehydrogenase 216 units/L (91-180) H 06/11/19 09:10 Total Protein 6.2 g/dL (6.3-8.2) L 06/09/19 20:59 Albumin 2.8 g/dL (3.9-5) L 06/09/19 20:59 Albumin/Globulin Ratio 0.8 % 06/09/19 20:59 PTH Intact 238.6 pg/mL (15-65) H 06/11/19 05:37 Urine Color Straw (Yellow) 06/09/19 22:13 Urine Turbidity Clear (Clear) 06/09/19 22:13 Urine pH 5.0 (5.0-7.0) 06/09/19 22:13 Ur Specific Corinne 1.014 (1.003-1.030) 06/09/19 22:13 Urine Protein 100 mg/dl mg/dL (Negative) 06/09/19 22:13 Urine Glucose (UA) 50 mg/dL (Negative) 06/09/19 22:13 Urine Ketones Neg mg/dL (Negative) 06/09/19 22:13 Urine Blood Sm (Negative) 06/09/19 22:13 Urine Nitrite Neg (Negative) 06/09/19 22:13 Urine Bilirubin Neg (Negative) 06/09/19 22:13 Urine Urobilinogen < 2.0 mg/dL (<2.0) 06/09/19 22:13 Ur Leukocyte Esterase Neg (Negative) 06/09/19 22:13 Urine WBC (Auto) 8.0 /HPF (0.0-6.0) H 06/09/19 22:13 Urine RBC (Auto) 2.0 /HPF (0.0-6.0) 06/09/19 22:13 U Epithel Cells (Auto) 1.0 /HPF (0-13.0) 06/09/19 22:13 Urine Eosinophils Few easinophil seen (None Seen) 06/10/19 20:39 Urine Creatinine 69.4 mg/dL (0.1-20.0) H 06/10/19 20:39 Urine Microalbumin 6.0 mg/dL (0.1-34.0) 06/10/19 20:39 Microalb/Creat Ratio 86.4 ug/mg 06/10/19 20:39 Urine Sodium 58 mmol/L 06/10/19 20:39 Urine Urea Nitrogen 490 06/10/19 20:39 Urine Total Protein 97 mg/dL (5-11.8) H 06/10/19 20:39 Active Medications - Current Medications Current Medications: Generic Name Dose Route Start Last Admin Trade Name Freq PRN Reason Stop Dose Admin Acetaminophen 650 mg 06/10/19 02:20 Tylenol PO Q4H PRN Pain MILD(1-3)/Fever >100.5/MISHRA Amlodipine Besylate 5 mg 06/10/19 08:00 06/11/19 08:38 Amlodipine PO 5 mg DAILY@0800 JONES Administration Clonidine HCl 0.2 mg 06/10/19 10:00 06/11/19 09:02 Catapres PO 0.2 mg BID JONES Administration Dextrose 0 ml 06/10/19 04:10 D50w (25gm) Syringe IV Q30MIN PRN Hypoglycemia Protocol Enoxaparin Sodium 30 mg 06/10/19 10:00 06/11/19 09:03 Enoxaparin SUB-Q Not Given QDAY JONES Gabapentin 200 mg 06/11/19 10:00 06/11/19 09:02 Gabapentin PO 200 mg DAILY JONES Administration Ceftriaxone Sodium 1 gm in 50 mls @ 100 mls/hr 06/10/19 02:22 06/11/19 09:02 Rocephin/Ns 1 Gm/50 Ml IV 100 mls/hr Q24HR JONES Administration Protocol Sodium Chloride 1,000 mls @ 50 mls/hr 06/10/19 14:15 06/10/19 18:45 Nacl 0.9% 1000 Ml IV 50 mls/hr DIRECT JONES Administration Insulin Human Lispro 0 unit 06/10/19 07:30 06/11/19 08:39 Humalog SUB-Q Not Given ACHS JONES Protocol Ondansetron HCl 4 mg 06/10/19 02:20 Zofran IV Q8H PRN Nausea And Vomiting Oxycodone/Acetaminophen 1 tab 06/10/19 02:20 Percocet 5/325 PO Q6H PRN Pain, Moderate (4-6) Sodium Chloride 10 ml 06/10/19 10:00 06/11/19 09:03 Sodium Chloride Flush Syringe 10 Ml IV 10 ml BID JONES Administration Sodium Chloride 10 ml 06/10/19 02:20 Sodium Chloride Flush Syringe 10 Ml IV PRN PRN LINE FLUSH Nutrition/Malnutrition Assess - Dietary Evaluation Nutrition/Malnutrition Findings: Nutrition Notes Start: 06/10/19 12:16 Freq: Status: Active Protocol: Document 06/10/19 12:16 LM (Rec: 06/10/19 12:17 LM [id number]) Nutrition Notes Need for Assessment generated from: mold closer Initial or Follow up Brief Note Subjective/Other Information RN screen for skin risk. Juancarlos score of 22. Nutrition Intervention Revisit per MD consult or patient Sign Off request:
--- NOTE | 2019-06-11 14:15 | XRay Report ---
CHEST 2 VIEWS INDICATION / CLINICAL INFORMATION: bibasilar infiltrates. COMPARISON: One view of the chest from 06/09/2019. FINDINGS: SUPPORT DEVICES: None. HEART / MEDIASTINUM: No significant abnormality. LUNGS / PLEURA: Small pleural effusions are unchanged with associated atelectasis. The lungs are othe rwise clear. No pneumothorax. ADDITIONAL FINDINGS: No significant additional findings. IMPRESSION: Stable small pleural effusions with associated atelectasis. Signer Name: Ehsan Mcintyre MD Signed: 06/11/2019 2:11 PM Workstation Name: [id number]
--- NOTE | 2019-06-11 17:23 | Consultation ---
History of Present Illness - Reason for Consult Consult date: 06/11/19 - History of Present Illness Patient is 64 years old female with history of hypertension, diabetes and chronic kidney disease. Patient also had history of coronary artery disease. Patient brought to the emergency room from [facility] for evaluation of abnormal labs. EMS did not bring any information about patient abnormal labs and said it was BUN creatinine was high. Patient is sitting comfortably in no acute distress. Patient is alert, oriented x3. Patient denied any symptoms. Patient specifically denies any chest pain, shortness of breath, cough fever chills. + family of stones/ T& A - mild right hydronephrosis on renal US A/p - mild right hydronephrosis on renal US CTAP Medications and Allergies Allergies Allergy/AdvReac Type Severity Reaction Status Date / Time No Known Allergies Allergy Unverified 06/09/19 18:40 Home Medications Medication Instructions Recorded Confirmed Last Taken Type Aspirin [Aspirin BABY CHEW TAB] 81 mg PO QDAY 06/10/19 06/10/19 Unknown History Gabapentin [Neurontin] 400 mg PO BID 06/10/19 06/10/19 Unknown History amLODIPine [Norvasc] 5 mg PO DAILY 06/10/19 06/10/19 Unknown History cloNIDine [Catapres] 0.2 mg PO BID 06/10/19 06/10/19 Unknown History Active Meds: Active Medications Acetaminophen (Tylenol) 650 mg PO Q4H PRN PRN Reason: Pain MILD(1-3)/Fever >100.5/MISHRA Amlodipine Besylate (Amlodipine) 5 mg PO DAILY@0800 [facility] Last Admin: 06/11/19 08:38 Dose: 5 mg Documented by: Clonidine HCl (Catapres) 0.2 mg PO BID [facility] Last Admin: 06/11/19 09:02 Dose: 0.2 mg Documented by: Dextrose (D50w (25gm) Syringe) 0 ml IV Q30MIN PRN; Protocol PRN Reason: Hypoglycemia Enoxaparin Sodium (Enoxaparin) 30 mg SUB-Q QDAY [facility] Last Admin: 06/11/19 09:03 Dose: Not Given Documented by: Gabapentin (Gabapentin) 200 mg PO DAILY [facility] Last Admin: 06/11/19 09:02 Dose: 200 mg Documented by: Ceftriaxone Sodium (Rocephin/Ns 1 Gm/50 Ml) 1 gm in 50 mls @ 100 mls/hr IV Q24HR [facility]; Protocol Last Admin: 06/11/19 09:02 Dose: 100 mls/hr Documented by: Sodium Chloride (Nacl 0.9% 1000 Ml) 1,000 mls @ 50 mls/hr IV DIRECT JONES Last Admin: 06/10/19 18:45 Dose: 50 mls/hr Documented by: Insulin Human Lispro (Humalog) 0 unit SUB-Q ACHS [facility]; Protocol Last Admin: 06/11/19 12:15 Dose: Not Given Documented by: Ondansetron HCl (Zofran) 4 mg IV Q8H PRN PRN Reason: Nausea And Vomiting Oxycodone/Acetaminophen (Percocet 5/325) 1 tab PO Q6H PRN PRN Reason: Pain, Moderate (4-6) Sodium Chloride (Sodium Chloride Flush Syringe 10 Ml) 10 ml IV BID [facility] Last Admin: 06/11/19 09:03 Dose: 10 ml Documented by: Sodium Chloride (Sodium Chloride Flush Syringe 10 Ml) 10 ml IV PRN PRN PRN Reason: LINE FLUSH Exam - Constitutional Vitals: Temp Pulse Resp BP Pulse Ox 98.3 F 86 18 169/81 96 06/11/19 08:29 06/11/19 09:02 06/11/19 08:29 06/11/19 10:37 06/11/19 08:29 Results - Labs CBC & Chem 7: 06/11/19 05:37 06/11/19 05:37 Labs: Abnormal lab results 06/10/19 06/11/19 06/11/19 Range/Units 20:39 05:37 05:37 RBC 3.63 L (3.65-5.03) M/mm3 Chloride 109.9 H (98-107) mmol/L Carbon Dioxide 19 L (22-30) mmol/L BUN 67 H (7-17) mg/dL Creatinine 5.6 H (0.7-1.2) mg/dL Glucose 131 H (65-100) mg/dL Calcium 8.1 L (8.4-10.2) mg/dL Lactate Dehydrogenase (91-180) units/L PTH Intact (15-65) pg/mL Urine Creatinine 69.4 H (0.1-20.0) mg/dL Urine Total Protein 97 H (5-11.8) mg/dL 06/11/19 06/11/19 Range/Units 05:37 09:10 RBC (3.65-5.03) M/mm3 Chloride (98-107) mmol/L Carbon Dioxide (22-30) mmol/L BUN (7-17) mg/dL Creatinine (0.7-1.2) mg/dL Glucose (65-100) mg/dL Calcium (8.4-10.2) mg/dL Lactate Dehydrogenase 216 H (91-180) units/L PTH Intact 238.6 H (15-65) pg/mL Urine Creatinine (0.1-20.0) mg/dL Urine Total Protein (5-11.8) mg/dL
--- NOTE | 2019-06-11 18:42 | Cat Scan Report ---
CT of the abdomen and pelvis without contrast INDICATION: Renal obstruction COMPARISON: None FINDINGS: There are large pleural effusions right greater than left with compressive atelectasis at t he lung bases. Liver, spleen, pancreas and adrenal glands are all grossly normal. There is no left-si ded hydronephrosis. 1.5 cm low density in the left lower pole may be a cyst. There are several right renal nodules probably cysts as well with a small stone in the right lower pole. There is dilated rig ht renal pelvis and right pyelocaliectasis caused by a right UPJ obstruction of uncertain etiology as no stone is seen in this area. The right ureter is of normal caliber however. No definite gallbladde r or biliary tree abnormality. No fluid or adenopathy in the upper abdomen. There is left breast jarod a as well as generalized subcutaneous induration. There is moderate vascular calcification without an eurysm. No fluid or adenopathy in the upper abdomen. CT of the pelvis shows no evidence of bowel obstruction. There is no pelvic fluid or adenopathy. No u terine or adnexal masses. No diverticulosis or diverticulitis. Appendix is seen and is normal. No sig nificant skeletal lesion. No ureteral stones are seen. No stone fragments seen in the bladder. IMPRESSION: Multiple findings as described. No definite acute inflammatory process seen. Automated exposure control was utilized to diminish radiation dose. Signer Name: Cesar Elena MD Signed: 06/11/2019 6:38 PM Workstation Name: [id number]
[2019-06-11] MEDS: SODIUM CHLORIDE 0.9% 1000 ML 1,000 ML IV SCH (18:57)
[2019-06-12] MEDS: hydrALAZINE 20 MG/1 ML INJ IV PRN ×2 (06:22→18:32)
[2019-06-12 06:56] LABS: Hematocrit 31.4 % (30.3-42.9); Hemoglobin 10.7 gm/dl (10.1-14.3); Mean Corpuscular HGB Conc 34 % (30-34); Mean Corpuscular Volume 89 fl (79-97); Platelet Count 184 K/mm3 (140-440); Red Blood Count 3.52 M/mm3 (3.65-5.03); Red Cell Distribution Width 14.5 % (13.2-15.2)
[2019-06-12 07:00] LABS: Calcium 8.2 mg/dL (8.4-10.2)
[2019-06-12] MEDS: INSULIN LISPRO 100 UNIT/ML SUB-Q SCH ×4 (07:30→21:57)
--- NOTE | 2019-06-12 08:48 | Progress Note ---
Subjective Date of service: 06/12/19 Principal diagnosis: LEONOR Interval history: Patient is 64 years old female with history of hypertension, diabetes and chronic kidney disease. Patient also had history of coronary artery disease. Patient brought to the emergency room from [facility] assisted living facility for evaluation of abnormal labs. EMS did not bring any information about patient abnormal labs and said it was BUN creatinine was high. Patient is sitting comfortably in no acute distress. Patient is alert, oriented x3. Patient denied any symptoms. Patient specifically denies any chest pain, shortness of breath, cough fever chills. + family of stones/ T& A - mild right hydronephrosis on renal US CTAP---rt hydro A/p - mild right hydronephrosis renal insuff will set up cysto stent Objective - Constitutional Vitals: Vital Signs - 12hr 06/11/19 06/11/19 06/11/19 21:22 22:15 23:50 Temperature 98.1 F Pulse Rate 80 80 71 Respiratory 20 Rate Respiratory Rate [pt denies ] Blood Pressure 179/87 170/92 O2 Sat by Pulse 95 Oximetry 06/12/19 06/12/19 06/12/19 00:00 00:09 03:05 Temperature 98.7 F Pulse Rate 76 73 Respiratory 20 Rate Respiratory 17 Rate [pt denies ] Blood Pressure 179/82 O2 Sat by Pulse 95 Oximetry 06/12/19 06/12/19 04:44 06:22 Temperature 97.9 F Pulse Rate 74 80 Respiratory 16 Rate Respiratory Rate [pt denies ] Blood Pressure 166/78 180/85 O2 Sat by Pulse 95 Oximetry - Labs CBC & Chem 7: 06/12/19 05:18 06/12/19 05:18 Labs: Abnormal lab results 06/11/19 06/11/19 06/11/19 Range/Units 09:10 12:26 19:12 RBC (3.65-5.03) M/mm3 Chloride (98-107) mmol/L Carbon Dioxide (22-30) mmol/L BUN (7-17) mg/dL Creatinine (0.7-1.2) mg/dL POC Glucose 123 H 139 H (70-105) Calcium (8.4-10.2) mg/dL Phosphorus (2.5-4.5) mg/dL Lactate Dehydrogenase 216 H (91-180) units/L 06/12/19 06/12/19 Range/Units 05:18 05:18 RBC 3.52 L (3.65-5.03) M/mm3 Chloride 110.3 H (98-107) mmol/L Carbon Dioxide 18 L (22-30) mmol/L BUN 62 H (7-17) mg/dL Creatinine 5.1 H (0.7-1.2) mg/dL POC Glucose (70-105) Calcium 8.2 L (8.4-10.2) mg/dL Phosphorus 5.30 H (2.5-4.5) mg/dL Lactate Dehydrogenase (91-180) units/L Medications & Allergies - Medications Allergies/Adverse Reactions: Allergies No Known Allergies Allergy (Unverified 06/09/19 18:40) Home Medications: Home Medications Medication Instructions Recorded Confirmed Last Taken Type Aspirin [Aspirin BABY CHEW TAB] 81 mg PO QDAY 06/10/19 06/10/19 Unknown History Gabapentin [Neurontin] 400 mg PO BID 06/10/19 06/10/19 Unknown History amLODIPine [Norvasc] 5 mg PO DAILY 06/10/19 06/10/19 Unknown History cloNIDine [Catapres] 0.2 mg PO BID 06/10/19 06/10/19 Unknown History Active Medications: Generic Name Dose Route Start Last Admin Trade Name Freq PRN Reason Stop Dose Admin Acetaminophen 650 mg 06/10/19 02:20 Tylenol PO Q4H PRN Pain MILD(1-3)/Fever >100.5/MISHRA Amlodipine Besylate 5 mg 06/10/19 08:00 06/11/19 08:38 Amlodipine PO 5 mg DAILY@0800 JONES Administration Clonidine HCl 0.2 mg 06/10/19 10:00 06/11/19 22:15 Catapres PO 0.2 mg BID JONES Administration Dextrose 0 ml 06/10/19 04:10 D50w (25gm) Syringe IV Q30MIN PRN Hypoglycemia Protocol Enoxaparin Sodium 30 mg 06/10/19 10:00 06/11/19 09:03 Enoxaparin SUB-Q Not Given QDAY JONES Gabapentin 200 mg 06/11/19 10:00 06/11/19 09:02 Gabapentin PO 200 mg DAILY JONES Administration Hydralazine HCl 5 mg 06/12/19 04:07 06/12/19 06:22 Apresoline IV 5 mg Q4HR PRN Administration Blood Pressure Ceftriaxone Sodium 1 gm in 50 mls @ 100 mls/hr 06/10/19 02:22 06/11/19 09:02 Rocephin/Ns 1 Gm/50 Ml IV 100 mls/hr Q24HR JONES Administration Protocol Sodium Chloride 1,000 mls @ 50 mls/hr 06/10/19 14:15 06/11/19 18:57 Nacl 0.9% 1000 Ml IV 50 mls/hr DIRECT JONES Administration Insulin Human Lispro 0 unit 06/10/19 07:30 06/11/19 22:19 Humalog SUB-Q Not Given ACHS JONES Protocol Ondansetron HCl 4 mg 06/10/19 02:20 Zofran IV Q8H PRN Nausea And Vomiting Oxycodone/Acetaminophen 1 tab 06/10/19 02:20 Percocet 5/325 PO Q6H PRN Pain, Moderate (4-6) Sodium Chloride 10 ml 06/10/19 10:00 06/11/19 22:20 Sodium Chloride Flush Syringe 10 Ml IV 10 ml BID JONES Administration Sodium Chloride 10 ml 06/10/19 02:20 Sodium Chloride Flush Syringe 10 Ml IV PRN PRN LINE FLUSH
[2019-06-12 08:57] LABS: INR 1.16 (0.87-1.13)
[2019-06-12 08:58] LABS: Partial Thromboplastin Time 45.1 Sec. (24.2-36.6)
--- NOTE | 2019-06-12 09:35 | Anesthesia Consultation ---
Anesthesia Consult and Med Hx Date of service: 06/12/19 - Airway Anesthetic Teeth Evaluation: Good ROM Head & Neck: Adequate Mental/Hyoid Distance: Adequate Mallampati Class: Class II Intubation Access Assessment: Probably Good - Pulmonary Exam CTA: Yes - Cardiac Exam Cardiac Exam: RRR - Pre-Operative Health Status ASA Pre-Surgery Classification: ASA3 Proposed Anesthetic Plan: General - Pulmonary Hx Smoking: No - Cardiovascular System Hx Hypertension: Yes (Pedal edema) Hx Heart Attack/AMI: No (Patient denied) Hx Angina: No (Patient denied) Hx Percutaneous Transluminal Coronary Angioplasty (PTCA): No (Patient denied) Hx Cardia Arrhythmia: No (NSR) Hx Pacemaker: No Hx Internal Defibrillator: No Hx Valvular Heart Disease: No Hx Heart Murmur: No - Central Nervous System CVA: No Hx Psychiatric Problems: No (Anxiety /Depression) - Gastrointestinal Hx Gastroesophageal Reflux Disease: No - Endocrine Hx Renal Disease: Yes (Chronic Kidney Disease) Hx Liver Disease: No Hx Non-Insulin Dependent Diabetes: Yes - Other Systems Hx Alcohol Use: No Hx Substance Use: No Hx Cancer: No Hx Obesity: Yes (BMI- 37.1kg) - Additional Comments Anesthesia Medical History Comments: Patient denied previous anesthesia related complications. H/H- 10.7/31.4; PT/PTT-15.0/45.1; INR- 1.16
--- NOTE | 2019-06-12 09:44 | Anesthesia Day of Surgery ---
Anesthesia Day of Surgery - Day of Surgery Patient Examined: Yes Patient H&P Reviewed: Yes Patient is NPO: Yes
[2019-06-12] MEDS: amLODIPine 5 MG TAB PO SCH (09:54)
[2019-06-12] MEDS: ENOXAPARIN 30 MG/0.3 ML INJ SUB-Q SCH (09:54)
[2019-06-12] MEDS: cloNIDine 0.2 MG TAB PO SCH ×2 (09:54→21:56)
[2019-06-12] MEDS: GABAPENTIN 100 MG CAP PO SCH (09:54)
[2019-06-12] MEDS: cefTRIAXone/NS 1 GM/50 ML 1 GM/50 ML BAG IV SCH (09:54)
--- NOTE | 2019-06-12 10:00 | Progress Note ---
Assessment and Plan Assessment and plan: Acute on chronic renal failure due to ATN versus vasomotor nephropathy Nephrology consulted, following Cont iv fluids Bibasilar opacities due to atelectasis,pleural effusion Patient does not have pneumonia-ruled out Bilateral small pleural effusions Monitor Hyperkalemia resolved, status post Kayexalate, Diabetes Check fingersticks qac and hs Hypertension Monitor BP 06/12 Patient with acute on CKD, improving slowly. Cr 5.1. US showed right hydronephrosis. Urology consulted. History Interval history: Patient sent in because of abnormal renal function, Diagnosed with acute on CKD Hospitalist Physical - Physical exam Narrative exam: GEN: Not in acute distress, lying in bed, obese HEENT: Normocephalic, atraumatic, Neck: supple, No JVD Lungs: Clear to auscultation ,no wheeze, heart;S1 and S2 reg, no murmurs, rubs or gallop Abd:soft, non tender, normal BS Ext: No edema, no clubbing, no cyanosis Neuro: Awake,alert, oriented X 3, no focal neurological signs - Constitutional Vitals: Temp Pulse Resp BP Pulse Ox 97.9 F 90 18 184/78 96 06/12/19 08:52 06/12/19 08:52 06/12/19 08:52 06/12/19 08:52 06/12/19 09:41 Results - Labs CBC & Chem 7: 06/12/19 05:18 06/12/19 05:18 Labs: Laboratory Last Values WBC 7.9 K/mm3 (4.5-11.0) 06/12/19 05:18 RBC 3.52 M/mm3 (3.65-5.03) L 06/12/19 05:18 Hgb 10.7 gm/dl (10.1-14.3) 06/12/19 05:18 Hct 31.4 % (30.3-42.9) 06/12/19 05:18 MCV 89 fl (79-97) 06/12/19 05:18 MCH 30 pg (28-32) 06/12/19 05:18 MCHC 34 % (30-34) 06/12/19 05:18 RDW 14.5 % (13.2-15.2) 06/12/19 05:18 Plt Count 184 K/mm3 (140-440) 06/12/19 05:18 Lymph % (Auto) 11.2 % (13.4-35.0) L 06/10/19 05:28 [place] % (Auto) 8.9 % (0.0-7.3) H 06/10/19 05:28 Eos % (Auto) 3.0 % (0.0-4.3) 06/10/19 05:28 Baso % (Auto) 0.7 % (0.0-1.8) 06/10/19 05:28 Lymph # 1.1 K/mm3 (1.2-5.4) L 06/10/19 05:28 [place] # 0.8 K/mm3 (0.0-0.8) 06/10/19 05:28 Eos # 0.3 K/mm3 (0.0-0.4) 06/10/19 05:28 Baso # 0.1 K/mm3 (0.0-0.1) 06/10/19 05:28 Seg Neutrophils % 76.2 % (40.0-70.0) H 06/10/19 05:28 Seg Neutrophils # 7.1 K/mm3 (1.8-7.7) 06/10/19 05:28 PT 15.0 Sec. (12.2-14.9) H 06/12/19 08:28 INR 1.16 (0.87-1.13) H 06/12/19 08:28 APTT 45.1 Sec. (24.2-36.6) H 06/12/19 08:28 Sodium 144 mmol/L (137-145) 06/12/19 05:18 Potassium 4.2 mmol/L (3.6-5.0) 06/12/19 05:18 Chloride 110.3 mmol/L (98-107) H 06/12/19 05:18 Carbon Dioxide 18 mmol/L (22-30) L 06/12/19 05:18 Anion Gap 20 mmol/L 06/12/19 05:18 BUN 62 mg/dL (7-17) H 06/12/19 05:18 Creatinine 5.1 mg/dL (0.7-1.2) H 06/12/19 05:18 Estimated GFR 9 ml/min 06/12/19 05:18 BUN/Creatinine Ratio 12 % 06/12/19 05:18 Glucose 98 mg/dL (65-100) 06/12/19 05:18 POC Glucose 76 (70-105) 06/12/19 09:02 Calcium 8.2 mg/dL (8.4-10.2) L 06/12/19 05:18 Phosphorus 5.30 mg/dL (2.5-4.5) H 06/12/19 05:18 Magnesium 1.80 mg/dL (1.7-2.3) 06/11/19 05:37 Total Bilirubin 0.20 mg/dL (0.1-1.2) 06/09/19 20:59 AST 9 units/L (5-40) 06/09/19 20:59 ALT 8 units/L (7-56) 06/09/19 20:59 Alkaline Phosphatase 62 units/L (35-129) 06/09/19 20:59 Lactate Dehydrogenase 216 units/L (91-180) H 06/11/19 09:10 Total Protein 6.2 g/dL (6.3-8.2) L 06/09/19 20:59 Albumin 2.8 g/dL (3.9-5) L 06/09/19 20:59 Albumin/Globulin Ratio 0.8 % 06/09/19 20:59 PTH Intact 238.6 pg/mL (15-65) H 06/11/19 05:37 Urine Color Straw (Yellow) 06/09/19 22:13 Urine Turbidity Clear (Clear) 06/09/19 22:13 Urine pH 5.0 (5.0-7.0) 06/09/19 22:13 Ur Specific [place] 1.014 (1.003-1.030) 06/09/19 22:13 Urine Protein 100 mg/dl mg/dL (Negative) 06/09/19 22:13 Urine Glucose (UA) 50 mg/dL (Negative) 06/09/19 22:13 Urine Ketones Neg mg/dL (Negative) 06/09/19 22:13 Urine Blood Sm (Negative) 06/09/19 22:13 Urine Nitrite Neg (Negative) 06/09/19 22:13 Urine Bilirubin Neg (Negative) 06/09/19 22:13 Urine Urobilinogen < 2.0 mg/dL (<2.0) 06/09/19 22:13 Ur Leukocyte Esterase Neg (Negative) 06/09/19 22:13 Urine WBC (Auto) 8.0 /HPF (0.0-6.0) H 06/09/19 22:13 Urine RBC (Auto) 2.0 /HPF (0.0-6.0) 06/09/19 22:13 U Epithel Cells (Auto) 1.0 /HPF (0-13.0) 06/09/19 22:13 Urine Eosinophils Few easinophil seen (None Seen) 06/10/19 20:39 Urine Creatinine 69.4 mg/dL (0.1-20.0) H 06/10/19 20:39 Urine Microalbumin 6.0 mg/dL (0.1-34.0) 06/10/19 20:39 Microalb/Creat Ratio 86.4 ug/mg 06/10/19 20:39 Urine Sodium 58 mmol/L 06/10/19 20:39 Urine Urea Nitrogen 490 06/10/19 20:39 Urine Total Protein 97 mg/dL (5-11.8) H 06/10/19 20:39 Hep Bs Antigen Non-reactive (Negative) 06/11/19 09:10 Hepatitis C Antibody Non-reactive (NonReactive) 06/11/19 09:10 Schistocytes Smear None seen 06/11/19 09:10 Active Medications - Current Medications Current Medications: Generic Name Dose Route Start Last Admin Trade Name Freq PRN Reason Stop Dose Admin Acetaminophen 650 mg 06/10/19 02:20 Tylenol PO Q4H PRN Pain MILD(1-3)/Fever >100.5/MISHRA Amlodipine Besylate 5 mg 06/10/19 08:00 06/12/19 09:54 Amlodipine PO 5 mg DAILY@0800 JONES Administration Clonidine HCl 0.2 mg 06/10/19 10:00 06/12/19 09:54 Catapres PO 0.2 mg BID JONES Administration Dextrose 0 ml 06/10/19 04:10 D50w (25gm) Syringe IV Q30MIN PRN Hypoglycemia Protocol Enoxaparin Sodium 30 mg 06/10/19 10:00 06/12/19 09:54 Enoxaparin SUB-Q 30 mg QDAY JONES Administration Gabapentin 200 mg 06/11/19 10:00 02/28/20 09:54 Gabapentin PO 200 mg DAILY JONES Administration Hydralazine HCl 5 mg 06/12/19 04:07 06/12/19 06:22 Apresoline IV 5 mg Q4HR PRN Administration Blood Pressure Ceftriaxone Sodium 1 gm in 50 mls @ 100 mls/hr 06/10/19 02:22 06/12/19 09:54 Rocephin/Ns 1 Gm/50 Ml IV 100 mls/hr Q24HR JONES Administration Protocol Sodium Chloride 1,000 mls @ 50 mls/hr 06/10/19 14:15 06/11/19 18:57 Nacl 0.9% 1000 Ml IV 50 mls/hr DIRECT JONES Administration Insulin Human Lispro 0 unit 06/10/19 07:30 06/12/19 07:30 Humalog SUB-Q Not Given ACHS [facility] Protocol Ondansetron HCl 4 mg 06/10/19 02:20 Zofran IV Q8H PRN Nausea And Vomiting Oxycodone/Acetaminophen 1 tab 06/10/19 02:20 Percocet 5/325 PO Q6H PRN Pain, Moderate (4-6) Sodium Chloride 10 ml 06/10/19 10:00 06/12/19 09:54 Sodium Chloride Flush Syringe 10 Ml IV 10 ml BID JONES Administration Sodium Chloride 10 ml 06/10/19 02:20 Sodium Chloride Flush Syringe 10 Ml IV PRN PRN LINE FLUSH Nutrition/Malnutrition Assess - Dietary Evaluation Nutrition/Malnutrition Findings: Nutrition Notes Start: 06/10/19 12:16 Freq: Status: Active Protocol: Document 06/10/19 12:16 LM (Rec: 06/10/19 12:17 LM [email or web address]) Nutrition Notes Need for Assessment 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 Juancarlos score of 22. Nutrition Intervention Revisit per MD consult or patient Sign Off request:
--- NOTE | 2019-06-12 11:23 | Progress Note ---
Assessment and Plan Acute Kidney Injury secondary to ATN vs prerenal azotemia vs progression of CKD, ? AIN from NSAIDs, r/o obstruction Pneumonia Non Anion Gap Metabolic Acidosis Hyperkalemia Diabetes Mellitus Type 2 non-insulin dependent Hypertensive Urgency Plan: - Cr is slowly trending down - will switch IVF to sodium bicarb D5W NaHCO3 150 meq @ 50 cc/h and check VBG - note to have +ve urine eos, will hold ASA and check secondary GN and vasculitis work up, if no improvement kidney biopsy Saturday - mild right hydronephrosis on renal US, urology consulted, planning on stent placement - Exact Scr baseline unknown - No acute indication for initiation of HD today, but will monitor renal function daily - Pt reports being told she had CKD Stage 3 about 10 yrs ago, may have progression of CKD, hx of HTN x 20 yrs and DM x 10 yrs, suspect underlying CKD due to HTN and DM. - Low potassium diet - Renally dose meds - Strict intake and output - Light Catheter: No Lew Torres MD [phone] Subjective Date of service: 06/12/19 Principal diagnosis: LEONOR Interval history: was in OR this AM Objective - Vital Signs Vital signs: Vital Signs - 12hr 06/11/19 06/12/19 06/12/19 23:50 00:00 00:09 Temperature 98.7 F Pulse Rate 71 76 Respiratory 20 Rate Respiratory 17 Rate [pt denies ] Blood Pressure 179/82 O2 Sat by Pulse 95 Oximetry 06/12/19 06/12/19 06/12/19 03:05 04:44 06:22 Temperature 97.9 F Pulse Rate 73 74 80 Respiratory 16 Rate Respiratory Rate [pt denies ] Blood Pressure 166/78 180/85 O2 Sat by Pulse 95 Oximetry 06/12/19 06/12/19 08:52 09:41 Temperature 97.9 F Pulse Rate 90 Respiratory 18 Rate Respiratory Rate [pt denies ] Blood Pressure 184/78 O2 Sat by Pulse 97 96 Oximetry - Lab 06/12/19 05:18 06/12/19 05:18 Most recent lab results Calcium 8.2 mg/dL (8.4-10.2) L 06/12/19 05:18 Phosphorus 5.30 mg/dL (2.5-4.5) H 06/12/19 05:18 Magnesium 1.80 mg/dL (1.7-2.3) 06/11/19 05:37 Urine Creatinine 69.4 mg/dL (0.1-20.0) H 06/10/19 20:39 Urine Sodium 58 mmol/L 06/10/19 20:39 Urine Total Protein 97 mg/dL (5-11.8) H 06/10/19 20:39 Medications & Allergies - Medications Allergies/Adverse Reactions: Allergies No Known Allergies Allergy (Unverified 06/09/19 18:40) Home Medications: Home Medications Medication Instructions Recorded Confirmed Last Taken Type Aspirin [Aspirin BABY CHEW TAB] 81 mg PO QDAY 06/10/19 06/10/19 Unknown History Gabapentin [Neurontin] 400 mg PO BID 06/10/19 06/10/19 Unknown History amLODIPine [Norvasc] 5 mg PO DAILY 06/10/19 06/10/19 Unknown History cloNIDine [Catapres] 0.2 mg PO BID 06/10/19 06/10/19 Unknown History Active Medications: Generic Name Dose Route Start Last Admin Trade Name Freq PRN Reason Stop Dose Admin Acetaminophen 650 mg 06/10/19 02:20 Tylenol PO Q4H PRN Pain MILD(1-3)/Fever >100.5/MISHRA Amlodipine Besylate 5 mg 06/10/19 08:00 06/12/19 09:54 Amlodipine PO 5 mg DAILY@0800 JONES Administration Clonidine HCl 0.2 mg 06/10/19 10:00 06/12/19 09:54 Catapres PO 0.2 mg BID JONES Administration Dextrose 0 ml 06/10/19 04:10 D50w (25gm) Syringe IV Q30MIN PRN Hypoglycemia Protocol Enoxaparin Sodium 30 mg 06/10/19 10:00 06/12/19 09:54 Enoxaparin SUB-Q 30 mg QDAY JONES Administration Gabapentin 200 mg 06/11/19 10:00 06/12/19 09:54 Gabapentin PO 200 mg DAILY JONES Administration Hydralazine HCl 5 mg 06/12/19 04:07 06/12/19 06:22 Apresoline IV 5 mg Q4HR PRN Administration Blood Pressure Ceftriaxone Sodium 1 gm in 50 mls @ 100 mls/hr 06/10/19 02:22 06/12/19 09:54 Rocephin/Ns 1 Gm/50 Ml IV 100 mls/hr Q24HR JONES Administration Protocol Sodium Bicarbonate 150 meq/ 1,150 mls @ 50 mls/hr 06/12/19 12:00 Dextrose IV DIRECT JONES Insulin Human Lispro 0 unit 06/10/19 07:30 06/12/19 07:30 Humalog SUB-Q Not Given ACHS [facility] Protocol Ondansetron HCl 4 mg 06/10/19 02:20 Zofran IV Q8H PRN Nausea And Vomiting Oxycodone/Acetaminophen 1 tab 06/10/19 02:20 Percocet 5/325 PO Q6H PRN Pain, Moderate (4-6) Sodium Chloride 10 ml 06/10/19 10:00 06/12/19 09:54 Sodium Chloride Flush Syringe 10 Ml IV 10 ml BID JONES Administration Sodium Chloride 10 ml 06/10/19 02:20 Sodium Chloride Flush Syringe 10 Ml IV PRN PRN LINE FLUSH
[2019-06-12] MEDS ORDERED: LACTATED RINGERS 1,000 ML IV SCH (11:46)
[2019-06-12] MEDS ORDERED: LACTATED RINGERS 1,000 ML ONE (11:47)
[2019-06-12] MEDS ORDERED: propofoL 200 MG/20 ML VIAL IV ONE ×2 (12:16→12:26)
[2019-06-12] MEDS ORDERED: ONDANSETRON 4 MG/2 ML INJ ONE (12:16)
[2019-06-12] MEDS ORDERED: PHENYLEPHRINE/NS 1,000 MCG/10 ML SYRINGE (OR USE) IV ONE (12:16)
[2019-06-12] MEDS ORDERED: fentaNYL 100 MCG/2 ML INJ ONE (12:16)
[2019-06-12] MEDS ORDERED: SUCCINYLCHOLINE CHLORIDE 200 MG/10 ML INJ MDV ONE (12:16)
[2019-06-12] MEDS ORDERED: dexAMETHasone 20 MG/5 ML VIAL ONE (12:16)
[2019-06-12] MEDS ORDERED: LIDOCAINE MPF (2%) 20 MG/1 ML VIAL 5 ML ONE (12:16)
--- NOTE | 2019-06-12 12:48 | Post Operative Note ---
Date of procedure: 06/12/19 Pre-op diagnosis: rt hydro Post-op diagnosis: other (uti) Procedure: cysto, rpg, stent with short internal string Anesthesia: SARAH Surgeon: MARICHUY KIMBLE Estimated blood loss: none Condition: stable Disposition: PACU
--- NOTE | 2019-06-12 13:09 | Operative Report ---
PREOPERATIVE DIAGNOSIS: Right hydronephrosis. POSTOPERATIVE DIAGNOSES: Right hydronephrosis, pyonephrosis. PROCEDURE: Cystoscopy, bilateral retrograde pyelograms, right double-J stent with a short internal string (6-Lebanese 24 cm). SURGEON: Kiko Johnson MD ANESTHESIA: General. ESTIMATED BLOOD LOSS: Minimal. FLUIDS: Crystalloid. INDICATIONS: This patient is a 64-year-old female with history of renal insufficiency. She underwent renal ultrasound, was found to have hydronephrosis. She also has a family history of kidney stones and some right flank pain. 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 Discussed options, she agreed to proceed with surgical intervention. DESCRIPTION OF PROCEDURE: The patient was taken to the operative suite, placed in a supine position. After adequate general anesthesia, placed in a dorsal lithotomy position, prepped and draped in a sterile fashion. She does have some contractures and we had to modify her positioning. Cystoscopy, no tumors or stones were noted in the bladder. Both ureteral orifices in normal position. Bilateral retrograde pyelograms were obtained with an 8-Lebanese Kimberly catheter and 8 mL of contrast. No filling defects or obstruction on the left. Right side, obvious hydronephrosis. A 0.035 Glidewire was placed, 6-Lebanese 24 cm double-J stent was placed with good position. Obvious pus could be appreciated from the right ureter. At this point, a urine culture was obtained. The bladder was drained. She was extubated and taken to recovery room. [facility]# [id number] [facility]
--- NOTE | 2019-06-12 13:45 | Post Anesthesia Evaluation ---
- Post Anesthesia Evaluation Patient Participated: Yes Airway Patent: Yes Stable Respiratory Function: Yes Nausea/Vomiting: No Temp > 96.8F: Yes Pain Manageable: Yes Adequeate Hydration: Yes Anesthesia Complications: No
[2019-06-12 17:04] LABS: ABG Base Excess -6.5 mmol/L (-2.0-3.0); ABG Methemoglobin 0.6 % (0.0-1.5); ABG Oxygen Saturation 92.7 % (95.0-99.0); ABG PCO2 43.8 mm Hg; ABG PH 7.279 pH Units (7.350-7.450); ABG PO2 62.6 mm Hg (80.0-90.0)
[2019-06-12] MEDS: SODIUM BICARBONATE 150 MEQ in DEXTROSE 5% IN WATER 1,000 ML IV SCH (17:29)
[2019-06-13] MEDS: hydrALAZINE 20 MG/1 ML INJ IV PRN ×2 (00:37→18:04)
[2019-06-13 05:44] LABS: Hematocrit 32.7 % (30.3-42.9); Hemoglobin 10.9 gm/dl (10.1-14.3); Mean Corpuscular HGB Conc 33 % (30-34); Mean Corpuscular Volume 89 fl (79-97); Platelet Count 195 K/mm3 (140-440); Red Blood Count 3.69 M/mm3 (3.65-5.03); Red Cell Distribution Width 14.6 % (13.2-15.2)
[2019-06-13 06:06] LABS: Calcium 8.2 mg/dL (8.4-10.2)
--- NOTE | 2019-06-13 08:52 | Event Note ---
cysto, rpg, stent with short internal string - 2-28-20 spoke with pt ok to dc home f/u 3-4 wks office for stent removal
[2019-06-13] MEDS: cefTRIAXone/NS 1 GM/50 ML 1 GM/50 ML BAG IV SCH (09:21)
[2019-06-13] MEDS: ENOXAPARIN 30 MG/0.3 ML INJ SUB-Q SCH (09:22)
[2019-06-13] MEDS: GABAPENTIN 100 MG CAP PO SCH (09:22)
[2019-06-13] MEDS: INSULIN LISPRO 100 UNIT/ML SUB-Q SCH ×4 (09:22→21:45)
[2019-06-13] MEDS: cloNIDine 0.2 MG TAB PO SCH ×2 (09:22→21:45)
[2019-06-13] MEDS: amLODIPine 5 MG TAB PO SCH (09:22)
--- NOTE | 2019-06-13 11:23 | Progress Note ---
Assessment and Plan Assessment and plan: Acute on chronic renal failure due to ATN versus vasomotor nephropathy Nephrology consulted, following Cont iv fluids Bibasilar opacities due to atelectasis,pleural effusion Patient does not have pneumonia-ruled out Bilateral small pleural effusions Monitor Hyperkalemia resolved, status post Kayexalate, Diabetes Check fingersticks qac and hs Hypertension Monitor BP 06/12 Patient with acute on CKD, improving slowly. Cr 5.1. US showed right hydronephrosis. Urology consulted. Dr. Johnson did cysto, rpg, stent with short internal string. patient with acute on CKD. had procedure by Dr. Saucedo yesterday. History Interval history: Patient sent in because of abnormal renal function, Diagnosed with acute on CKD Hospitalist Physical - Physical exam Narrative exam: GEN: Not in acute distress, lying in bed, obese HEENT: Normocephalic, atraumatic, Neck: supple, No JVD Lungs: Clear to auscultation ,no wheeze, heart;S1 and S2 reg, no murmurs, rubs or gallop Abd:soft, non tender, normal BS Ext: No edema, no clubbing, no cyanosis Neuro: Awake,alert, oriented X 3, no focal neurological signs - Constitutional Vitals: Temp Pulse Resp BP Pulse Ox 97.4 F L 85 18 172/78 97 06/13/19 07:54 06/13/19 07:54 06/13/19 05:09 06/13/19 07:54 06/13/19 07:54 Results - Labs CBC & Chem 7: 06/14/19 05:52 06/14/19 05:52 Labs: Laboratory Last Values WBC 5.9 K/mm3 (4.5-11.0) 06/13/19 05:19 RBC 3.69 M/mm3 (3.65-5.03) 06/13/19 05:19 Hgb 10.9 gm/dl (10.1-14.3) 06/13/19 05:19 Hct 32.7 % (30.3-42.9) 06/13/19 05:19 MCV 89 fl (79-97) 06/13/19 05:19 MCH 30 pg (28-32) 06/13/19 05:19 MCHC 33 % (30-34) 06/13/19 05:19 RDW 14.6 % (13.2-15.2) 06/13/19 05:19 Plt Count 195 K/mm3 (140-440) 06/13/19 05:19 Lymph % (Auto) 11.2 % (13.4-35.0) L 06/10/19 05:28 [place] % (Auto) 8.9 % (0.0-7.3) H 06/10/19 05:28 Eos % (Auto) 3.0 % (0.0-4.3) 06/10/19 05:28 Baso % (Auto) 0.7 % (0.0-1.8) 06/10/19 05:28 Lymph # 1.1 K/mm3 (1.2-5.4) L 06/10/19 05:28 [place] # 0.8 K/mm3 (0.0-0.8) 06/10/19 05:28 Eos # 0.3 K/mm3 (0.0-0.4) 06/10/19 05:28 Baso # 0.1 K/mm3 (0.0-0.1) 06/10/19 05:28 Seg Neutrophils % 76.2 % (40.0-70.0) H 06/10/19 05:28 Seg Neutrophils # 7.1 K/mm3 (1.8-7.7) 06/10/19 05:28 PT 15.0 Sec. (12.2-14.9) H 06/12/19 08:28 INR 1.16 (0.87-1.13) H 06/12/19 08:28 APTT 45.1 Sec. (24.2-36.6) H 06/12/19 08:28 ABG pH 7.279 pH Units (7.350-7.450) L 06/12/19 16:50 ABG pCO2 43.8 mm Hg 06/12/19 16:50 ABG pO2 62.6 mm Hg (80.0-90.0) L 06/12/19 16:50 ABG HCO3 20.0 mmol/L (20.0-26.0) 06/12/19 16:50 ABG O2 Saturation 92.7 % (95.0-99.0) L 06/12/19 16:50 ABG O2 Content 14.9 (0.0-44) 06/12/19 16:50 ABG Base Excess -6.5 mmol/L (-2.0-3.0) L 06/12/19 16:50 ABG Hemoglobin 11.7 gm/dl (12.0-16.0) L 06/12/19 16:50 ABG Carboxyhemoglobin 1.8 % (0.0-5.0) 06/12/19 16:50 ABG Methemoglobin 0.6 % (0.0-1.5) 06/12/19 16:50 Oxyhemoglobin 90.5 % (95.0-99.0) L 06/12/19 16:50 FiO2 21 % 06/12/19 16:50 Sodium 142 mmol/L (137-145) 06/13/19 05:19 Potassium 4.4 mmol/L (3.6-5.0) 06/13/19 05:19 Chloride 107.9 mmol/L (98-107) H 06/13/19 05:19 Carbon Dioxide 20 mmol/L (22-30) L 06/13/19 05:19 Anion Gap 19 mmol/L 06/13/19 05:19 BUN 64 mg/dL (7-17) H 06/13/19 05:19 Creatinine 5.2 mg/dL (0.7-1.2) H 06/13/19 05:19 Estimated GFR 8 ml/min 06/13/19 05:19 BUN/Creatinine Ratio 12 % 06/13/19 05:19 Glucose 198 mg/dL (65-100) H 06/13/19 05:19 POC Glucose 184 (70-105) H 06/13/19 07:59 Calcium 8.2 mg/dL (8.4-10.2) L 06/13/19 05:19 Phosphorus 5.30 mg/dL (2.5-4.5) H 06/13/19 05:19 Magnesium 1.80 mg/dL (1.7-2.3) 06/11/19 05:37 Total Bilirubin 0.20 mg/dL (0.1-1.2) 06/09/19 20:59 AST 9 units/L (5-40) 06/09/19 20:59 ALT 8 units/L (7-56) 06/09/19 20:59 Alkaline Phosphatase 62 units/L (35-129) 06/09/19 20:59 Lactate Dehydrogenase 216 units/L (91-180) H 06/11/19 09:10 Total Protein 6.2 g/dL (6.3-8.2) L 06/09/19 20:59 Albumin 2.8 g/dL (3.9-5) L 06/09/19 20:59 Albumin/Globulin Ratio 0.8 % 06/09/19 20:59 PTH Intact 238.6 pg/mL (15-65) H 06/11/19 05:37 Urine Color Straw (Yellow) 06/09/19 22:13 Urine Turbidity Clear (Clear) 06/09/19 22:13 Urine pH 5.0 (5.0-7.0) 06/09/19 22:13 Ur Specific [place] 1.014 (1.003-1.030) 06/09/19 22:13 Urine Protein 100 mg/dl mg/dL (Negative) 06/09/19 22:13 Urine Glucose (UA) 50 mg/dL (Negative) 06/09/19 22:13 Urine Ketones Neg mg/dL (Negative) 06/09/19 22:13 Urine Blood Sm (Negative) 06/09/19 22:13 Urine Nitrite Neg (Negative) 06/09/19 22:13 Urine Bilirubin Neg (Negative) 06/09/19 22:13 Urine Urobilinogen < 2.0 mg/dL (<2.0) 06/09/19 22:13 Ur Leukocyte Esterase Neg (Negative) 06/09/19 22:13 Urine WBC (Auto) 8.0 /HPF (0.0-6.0) H 06/09/19 22:13 Urine RBC (Auto) 2.0 /HPF (0.0-6.0) 06/09/19 22:13 U Epithel Cells (Auto) 1.0 /HPF (0-13.0) 06/09/19 22:13 Urine Eosinophils Few easinophil seen (None Seen) 06/10/19 20:39 Urine Creatinine 69.4 mg/dL (0.1-20.0) H 06/10/19 20:39 Urine Microalbumin 6.0 mg/dL (0.1-34.0) 06/10/19 20:39 Microalb/Creat Ratio 86.4 ug/mg 06/10/19 20:39 Urine Sodium 58 mmol/L 06/10/19 20:39 Urine Urea Nitrogen 490 06/10/19 20:39 Urine Total Protein 97 mg/dL (5-11.8) H 06/10/19 20:39 Hep Bs Antigen Non-reactive (Negative) 06/11/19 09:10 Hepatitis C Antibody Non-reactive (NonReactive) 06/11/19 09:10 Schistocytes Smear None seen 06/11/19 09:10 Active Medications - Current Medications Current Medications: Generic Name Dose Route Start Last Admin Trade Name Freq PRN Reason Stop Dose Admin Acetaminophen 650 mg 06/10/19 02:20 Tylenol PO Q4H PRN Pain MILD(1-3)/Fever >100.5/MISHRA Amlodipine Besylate 5 mg 06/10/19 08:00 06/13/19 09:22 Amlodipine PO 5 mg DAILY@0800 JONES Administration Clonidine HCl 0.2 mg 06/10/19 10:00 06/13/19 09:22 Catapres PO 0.2 mg BID JONES Administration Dextrose 0 ml 06/10/19 04:10 D50w (25gm) Syringe IV Q30MIN PRN Hypoglycemia Protocol Enoxaparin Sodium 30 mg 06/10/19 10:00 06/13/19 09:22 Enoxaparin SUB-Q 30 mg QDAY JONES Administration Gabapentin 200 mg 06/11/19 10:00 06/13/19 09:22 Gabapentin PO 200 mg DAILY JONES Administration Hydralazine HCl 5 mg 06/12/19 04:07 06/13/19 00:37 Apresoline IV 5 mg Q4HR PRN Administration Blood Pressure Ceftriaxone Sodium 1 gm in 50 mls @ 100 mls/hr 06/10/19 02:22 06/13/19 09:21 Rocephin/Ns 1 Gm/50 Ml IV 100 mls/hr Q24HR JONES Administration Protocol Sodium Bicarbonate 150 meq/ 1,150 mls @ 50 mls/hr 06/12/19 15:00 06/12/19 17:29 Dextrose IV 50 mls/hr DIRECT JONES Administration Lactated Ringer's 1,000 mls @ 75 mls/hr 06/12/19 11:46 06/12/19 12:00 Lactated Ringers IV 75 mls/hr DIRECT JONES Administration Insulin Human Lispro 0 unit 06/10/19 07:30 06/13/19 09:22 Humalog SUB-Q 3 unit ACHS JONES Administration Protocol Ondansetron HCl 4 mg 06/10/19 02:20 Zofran IV Q8H PRN Nausea And Vomiting Oxycodone/Acetaminophen 1 tab 06/10/19 02:20 Percocet 5/325 PO Q6H PRN Pain, Moderate (4-6) Sodium Chloride 10 ml 06/10/19 10:00 06/13/19 09:23 Sodium Chloride Flush Syringe 10 Ml IV 10 ml BID JONES Administration Sodium Chloride 10 ml 06/10/19 02:20 Sodium Chloride Flush Syringe 10 Ml IV PRN PRN LINE FLUSH Nutrition/Malnutrition Assess - Dietary Evaluation Nutrition/Malnutrition Findings: Nutrition Notes Start: 06/10/19 12:16 Freq: Status: Active Protocol: Document 06/10/19 12:16 LM (Rec: 06/10/19 12:17 LM [email or web address]) Nutrition Notes Need for Assessment generated from: director report Initial or Follow up Brief Note Subjective/Other Information RN screen for skin risk. Juancarlos score of 22. Nutrition Intervention Revisit per MD consult or patient Sign Off request:
--- NOTE | 2019-06-13 11:54 | Progress Note ---
Assessment and Plan Acute Kidney Injury secondary to ATN vs prerenal azotemia vs progression of CKD, ? AIN from NSAIDs, r/o obstruction Pneumonia Non Anion Gap Metabolic Acidosis Hyperkalemia Diabetes Mellitus Type 2 non-insulin dependent Hypertensive Urgency Plan: - Cr stable. - On bicarb drip. - note to have +ve urine eos, will hold ASA and check secondary GN and vasculitis work up, if no improvement kidney biopsy Saturday - mild right hydronephrosis on renal US, urology consulted, planning on stent placement - Exact Scr baseline unknown - No acute indication for initiation of HD today, but will monitor renal function daily - Pt reports being told she had CKD Stage 3 about 10 yrs ago, may have progression of CKD, hx of HTN x 20 yrs and DM x 10 yrs, suspect underlying CKD due to HTN and DM. - Low potassium diet - Renally dose meds - Strict intake and output - Light Catheter: No Reji Saravia MD [phone] Subjective Date of service: 06/13/19 Principal diagnosis: LEONOR Interval history: Making urine. Objective - Exam Narrative Exam: General appearance: well-developed, well-nourished, appears stated age EENT: ATNC, PERRL, mucous membranes moist Neck: no JVD, no carotid bruit Respiratory: Present: Clear to Ascultation. Absent: Rales, Ronchi Cardiology: regular, S1S2 Gastrointestinal: normoactive bowel sounds, no tenderness, no distended Integumentary: no rash, warm and dry Neurologic: no focal deficit, no asterixis Musculoskeletal: other (no edema in BLE) Psychiatric: cooperative - Vital Signs Vital signs: Vital Signs - 12hr 06/13/19 06/13/19 06/13/19 00:37 04:00 05:09 Temperature 98.2 F Pulse Rate 93 H 101 H 88 Respiratory 18 Rate Blood Pressure 176/87 162/79 O2 Sat by Pulse 96 Oximetry 06/13/19 07:54 Temperature 97.4 F L Pulse Rate 85 Respiratory Rate Blood Pressure 172/78 O2 Sat by Pulse 97 Oximetry - Lab 06/13/19 05:19 06/13/19 05:19 Most recent lab results ABG pH 7.279 pH Units (7.350-7.450) L 06/12/19 16:50 ABG pCO2 43.8 mm Hg 02/28/20 16:50 ABG pO2 62.6 mm Hg (80.0-90.0) L 06/12/19 16:50 ABG HCO3 20.0 mmol/L (20.0-26.0) 06/12/19 16:50 ABG O2 Saturation 92.7 % (95.0-99.0) L 06/12/19 16:50 Calcium 8.2 mg/dL (8.4-10.2) L 06/13/19 05:19 Phosphorus 5.30 mg/dL (2.5-4.5) H 06/13/19 05:19 Magnesium 1.80 mg/dL (1.7-2.3) 06/11/19 05:37 Urine Creatinine 69.4 mg/dL (0.1-20.0) H 06/10/19 20:39 Urine Sodium 58 mmol/L 06/10/19 20:39 Urine Total Protein 97 mg/dL (5-11.8) H 06/10/19 20:39 Medications & Allergies - Medications Allergies/Adverse Reactions: Allergies No Known Allergies Allergy (Unverified 06/09/19 18:40) Home Medications: Home Medications Medication Instructions Recorded Confirmed Last Taken Type Aspirin [Aspirin BABY CHEW TAB] 81 mg PO QDAY 06/10/19 06/10/19 Unknown History Gabapentin [Neurontin] 400 mg PO BID 06/10/19 06/10/19 Unknown History amLODIPine [Norvasc] 5 mg PO DAILY 06/10/19 06/10/19 Unknown History cloNIDine [Catapres] 0.2 mg PO BID 06/10/19 06/10/19 Unknown History Active Medications: Generic Name Dose Route Start Last Admin Trade Name Freq PRN Reason Stop Dose Admin Acetaminophen 650 mg 06/10/19 02:20 Tylenol PO Q4H PRN Pain MILD(1-3)/Fever >100.5/MISHRA Amlodipine Besylate 5 mg 06/10/19 08:00 06/13/19 09:22 Amlodipine PO 5 mg DAILY@0800 JONES Administration Clonidine HCl 0.2 mg 06/10/19 10:00 06/13/19 09:22 Catapres PO 0.2 mg BID JONES Administration Dextrose 0 ml 06/10/19 04:10 D50w (25gm) Syringe IV Q30MIN PRN Hypoglycemia Protocol Enoxaparin Sodium 30 mg 06/10/19 10:00 06/13/19 09:22 Enoxaparin SUB-Q 30 mg QDAY JONES Administration Gabapentin 200 mg 06/11/19 10:00 06/13/19 09:22 Gabapentin PO 200 mg DAILY JONES Administration Hydralazine HCl 5 mg 06/12/19 04:07 06/13/19 00:37 Apresoline IV 5 mg Q4HR PRN Administration Blood Pressure Ceftriaxone Sodium 1 gm in 50 mls @ 100 mls/hr 06/10/19 02:22 06/13/19 09:21 Rocephin/Ns 1 Gm/50 Ml IV 100 mls/hr Q24HR JONES Administration Protocol Sodium Bicarbonate 150 meq/ 1,150 mls @ 50 mls/hr 06/12/19 15:00 06/12/19 17:29 Dextrose IV 50 mls/hr DIRECT JONES Administration Lactated Ringer's 1,000 mls @ 75 mls/hr 06/12/19 11:46 06/12/19 12:00 Lactated Ringers IV 75 mls/hr DIRECT JONES Administration Insulin Human Lispro 0 unit 06/10/19 07:30 06/13/19 09:22 Humalog SUB-Q 3 unit ACHS JONES Administration Protocol Ondansetron HCl 4 mg 06/10/19 02:20 Zofran IV Q8H PRN Nausea And Vomiting Oxycodone/Acetaminophen 1 tab 06/10/19 02:20 Percocet 5/325 PO Q6H PRN Pain, Moderate (4-6) Sodium Chloride 10 ml 06/10/19 10:00 06/13/19 09:23 Sodium Chloride Flush Syringe 10 Ml IV 10 ml BID JONES Administration Sodium Chloride 10 ml 06/10/19 02:20 Sodium Chloride Flush Syringe 10 Ml IV PRN PRN LINE FLUSH
[2019-06-13] MEDS: SODIUM BICARBONATE 150 MEQ in DEXTROSE 5% IN WATER 1,000 ML IV SCH (18:04)
[2019-06-14 06:37] LABS: Hemoglobin 10.7 gm/dl (10.1-14.3); Mean Corpuscular HGB Conc 34 % (30-34); Mean Corpuscular Volume 89 fl (79-97); Platelet Count 209 K/mm3 (140-440); Red Blood Count 3.59 M/mm3 (3.65-5.03); Red Cell Distribution Width 15.1 % (13.2-15.2)
[2019-06-14 06:55] LABS: Calcium 7.9 mg/dL (8.4-10.2)
[2019-06-14] MEDS: INSULIN LISPRO 100 UNIT/ML SUB-Q SCH ×4 (07:51→22:20)
[2019-06-14] MEDS: GABAPENTIN 100 MG CAP PO SCH (11:01)
[2019-06-14] MEDS: cefTRIAXone/NS 1 GM/50 ML 1 GM/50 ML BAG IV SCH (11:01)
[2019-06-14] MEDS: amLODIPine 5 MG TAB PO SCH (11:01)
[2019-06-14] MEDS: ENOXAPARIN 30 MG/0.3 ML INJ SUB-Q SCH (11:01)
[2019-06-14] MEDS: hydrALAZINE 20 MG/1 ML INJ IV PRN ×2 (11:01→16:58)
[2019-06-14] MEDS: cloNIDine 0.2 MG TAB PO SCH ×2 (11:01→21:15)
--- NOTE | 2019-06-14 11:23 | Progress Note ---
Assessment and Plan Acute Kidney Injury secondary to ATN vs prerenal azotemia vs progression of CKD, ? AIN from NSAIDs, r/o obstruction Pneumonia Non Anion Gap Metabolic Acidosis Hyperkalemia Diabetes Mellitus Type 2 non-insulin dependent Hypertensive Urgency Plan: - Cr slightly down. - On bicarb drip. - note to have +ve urine eos, will hold ASA and check secondary GN and vasculitis work up, if no improvement kidney biopsy Saturday - mild right hydronephrosis on renal US, urology consulted, planning on stent placement - Exact Scr baseline unknown - No acute indication for initiation of HD today, but will monitor renal function daily - Pt reports being told she had CKD Stage 3 about 10 yrs ago, may have progression of CKD, hx of HTN x 20 yrs and DM x 10 yrs, suspect underlying CKD due to HTN and DM. - Low potassium diet - Renally dose meds - Strict intake and output - Light Catheter: No Reji Saravia MD [phone] Subjective Date of service: 06/14/19 Principal diagnosis: LEONOR Interval history: Making urine. Objective - Exam Narrative Exam: General appearance: well-developed, well-nourished, appears stated age EENT: ATNC, PERRL, mucous membranes moist Neck: no JVD, no carotid bruit Respiratory: Present: Clear to Ascultation. Absent: Rales, Ronchi Cardiology: regular, S1S2 Gastrointestinal: normoactive bowel sounds, no tenderness, no distended Integumentary: no rash, warm and dry Neurologic: no focal deficit, no asterixis Musculoskeletal: other (no edema in BLE) Psychiatric: cooperative - Vital Signs Vital signs: Vital Signs - 12hr 06/13/19 06/14/19 06/14/19 23:49 05:25 07:43 Temperature 98.0 F 98.0 F 98.3 F Pulse Rate 76 79 82 Respiratory 18 18 18 Rate Blood Pressure 150/69 169/79 178/81 O2 Sat by Pulse 93 95 96 Oximetry 06/14/19 09:11 Temperature Pulse Rate Respiratory Rate Blood Pressure O2 Sat by Pulse 96 Oximetry - Lab 06/14/19 05:52 06/14/19 05:52 Most recent lab results ABG pH 7.279 pH Units (7.350-7.450) L 06/12/19 16:50 ABG pCO2 43.8 mm Hg 06/12/19 16:50 ABG pO2 62.6 mm Hg (80.0-90.0) L 06/12/19 16:50 ABG HCO3 20.0 mmol/L (20.0-26.0) 06/12/19 16:50 ABG O2 Saturation 92.7 % (95.0-99.0) L 06/12/19 16:50 Calcium 7.9 mg/dL (8.4-10.2) L 06/14/19 05:52 Phosphorus 5.40 mg/dL (2.5-4.5) H 06/14/19 05:52 Magnesium 1.80 mg/dL (1.7-2.3) 06/11/19 05:37 Urine Creatinine 69.4 mg/dL (0.1-20.0) H 06/10/19 20:39 Urine Sodium 58 mmol/L 06/10/19 20:39 Urine Total Protein 97 mg/dL (5-11.8) H 06/10/19 20:39 Medications & Allergies - Medications Allergies/Adverse Reactions: Allergies No Known Allergies Allergy (Unverified 06/09/19 18:40) Home Medications: Home Medications Medication Instructions Recorded Confirmed Last Taken Type Aspirin [Aspirin BABY CHEW TAB] 81 mg PO QDAY 06/10/19 06/10/19 Unknown History Gabapentin [Neurontin] 400 mg PO BID 06/10/19 06/10/19 Unknown History amLODIPine [Norvasc] 5 mg PO DAILY 06/10/19 06/10/19 Unknown History cloNIDine [Catapres] 0.2 mg PO BID 06/10/19 06/10/19 Unknown History Active Medications: Generic Name Dose Route Start Last Admin Trade Name Freq PRN Reason Stop Dose Admin Acetaminophen 650 mg 06/10/19 02:20 Tylenol PO Q4H PRN Pain MILD(1-3)/Fever >100.5/MISHRA Amlodipine Besylate 5 mg 06/10/19 08:00 06/14/19 11:01 Amlodipine PO 5 mg DAILY@0800 JONES Administration Clonidine HCl 0.2 mg 06/10/19 10:00 06/14/19 11:01 Catapres PO 0.2 mg BID JONES Administration Dextrose 0 ml 06/10/19 04:10 D50w (25gm) Syringe IV Q30MIN PRN Hypoglycemia Protocol Enoxaparin Sodium 30 mg 06/10/19 10:00 06/14/19 11:01 Enoxaparin SUB-Q 30 mg QDAY JONES Administration Gabapentin 200 mg 06/11/19 10:00 06/14/19 11:01 Gabapentin PO 200 mg DAILY JONES Administration Hydralazine HCl 5 mg 06/12/19 04:07 06/14/19 11:01 Apresoline IV 5 mg Q4HR PRN Administration Blood Pressure Ceftriaxone Sodium 1 gm in 50 mls @ 100 mls/hr 06/10/19 02:22 06/14/19 11:01 Rocephin/Ns 1 Gm/50 Ml IV 100 mls/hr Q24HR JONES Administration Protocol Sodium Bicarbonate 150 meq/ 1,150 mls @ 50 mls/hr 06/12/19 15:00 06/13/19 18:04 Dextrose IV 50 mls/hr DIRECT JONES Administration Lactated Ringer's 1,000 mls @ 75 mls/hr 06/12/19 11:46 06/12/19 12:00 Lactated Ringers IV 75 mls/hr DIRECT JONES Administration Insulin Human Lispro 0 unit 06/10/19 07:30 06/14/19 07:51 Humalog SUB-Q Not Given ACHS JONES Protocol Ondansetron HCl 4 mg 06/10/19 02:20 Zofran IV Q8H PRN Nausea And Vomiting Oxycodone/Acetaminophen 1 tab 06/10/19 02:20 Percocet 5/325 PO Q6H PRN Pain, Moderate (4-6) Sodium Chloride 10 ml 06/10/19 10:00 06/14/19 11:02 Sodium Chloride Flush Syringe 10 Ml IV 10 ml BID JONES Administration Sodium Chloride 10 ml 06/10/19 02:20 Sodium Chloride Flush Syringe 10 Ml IV PRN PRN LINE FLUSH
--- NOTE | 2019-06-14 14:05 | Progress Note ---
Assessment and Plan Assessment and plan: Acute on chronic renal failure due to ATN versus vasomotor nephropathy Nephrology consulted, following Cont iv fluids Bibasilar opacities due to atelectasis,pleural effusion Patient does not have pneumonia-ruled out Bilateral small pleural effusions Monitor Hyperkalemia resolved, status post Kayexalate, Diabetes Check fingersticks qac and hs Hypertension Monitor BP 06/12 Patient with acute on CKD, improving slowly. Cr 5.1. US showed right hydronephrosis. Urology consulted. Dr. Johnson did cysto, rpg, stent with short internal string. patient with acute on CKD. had procedure by Dr. Saucedo yesterday. 06/13 No new complaints. For kidney biopsy tomorrow as per nephrology History Interval history: Patient sent in because of abnormal renal function, Diagnosed with acute on CKD Hospitalist Physical - Physical exam Narrative exam: GEN: Not in acute distress, lying in bed, obese HEENT: Normocephalic, atraumatic, Neck: supple, No JVD Lungs: Clear to auscultation ,no wheeze, heart;S1 and S2 reg, no murmurs, rubs or gallop Abd:soft, non tender, normal BS Ext: No edema, no clubbing, no cyanosis Neuro: Awake,alert, oriented X 3, no focal neurological signs - Constitutional Vitals: Temp Pulse Resp BP Pulse Ox 98.3 F 82 18 178/81 96 06/14/19 07:43 06/14/19 07:43 06/14/19 07:43 06/14/19 07:43 06/14/19 09:11 Results - Labs CBC & Chem 7: 06/14/19 05:52 06/14/19 05:52 Labs: Laboratory Last Values WBC 9.9 K/mm3 (4.5-11.0) 06/14/19 05:52 RBC 3.59 M/mm3 (3.65-5.03) L 06/14/19 05:52 Hgb 10.7 gm/dl (10.1-14.3) 06/14/19 05:52 Hct 32.0 % (30.3-42.9) 06/14/19 05:52 MCV 89 fl (79-97) 06/14/19 05:52 MCH 30 pg (28-32) 06/14/19 05:52 MCHC 34 % (30-34) 06/14/19 05:52 RDW 15.1 % (13.2-15.2) 06/14/19 05:52 Plt Count 209 K/mm3 (140-440) 06/14/19 05:52 Lymph % (Auto) 11.2 % (13.4-35.0) L 06/10/19 05:28 [place] % (Auto) 8.9 % (0.0-7.3) H 06/10/19 05:28 Eos % (Auto) 3.0 % (0.0-4.3) 06/10/19 05:28 Baso % (Auto) 0.7 % (0.0-1.8) 06/10/19 05:28 Lymph # 1.1 K/mm3 (1.2-5.4) L 06/10/19 05:28 [place] # 0.8 K/mm3 (0.0-0.8) 06/10/19 05:28 Eos # 0.3 K/mm3 (0.0-0.4) 06/10/19 05:28 Baso # 0.1 K/mm3 (0.0-0.1) 06/10/19 05:28 Seg Neutrophils % 76.2 % (40.0-70.0) H 06/10/19 05:28 Seg Neutrophils # 7.1 K/mm3 (1.8-7.7) 06/10/19 05:28 PT 15.0 Sec. (12.2-14.9) H 06/12/19 08:28 INR 1.16 (0.87-1.13) H 06/12/19 08:28 APTT 45.1 Sec. (24.2-36.6) H 06/12/19 08:28 ABG pH 7.279 pH Units (7.350-7.450) L 06/12/19 16:50 ABG pCO2 43.8 mm Hg 06/12/19 16:50 ABG pO2 62.6 mm Hg (80.0-90.0) L 06/12/19 16:50 ABG HCO3 20.0 mmol/L (20.0-26.0) 06/12/19 16:50 ABG O2 Saturation 92.7 % (95.0-99.0) L 06/12/19 16:50 ABG O2 Content 14.9 (0.0-44) 06/12/19 16:50 ABG Base Excess -6.5 mmol/L (-2.0-3.0) L 06/12/19 16:50 ABG Hemoglobin 11.7 gm/dl (12.0-16.0) L 06/12/19 16:50 ABG Carboxyhemoglobin 1.8 % (0.0-5.0) 06/12/19 16:50 ABG Methemoglobin 0.6 % (0.0-1.5) 06/12/19 16:50 Oxyhemoglobin 90.5 % (95.0-99.0) L 06/12/19 16:50 FiO2 21 % 06/12/19 16:50 Sodium 139 mmol/L (137-145) 06/14/19 05:52 Potassium 3.8 mmol/L (3.6-5.0) 06/14/19 05:52 Chloride 103.7 mmol/L (98-107) 06/14/19 05:52 Carbon Dioxide 24 mmol/L (22-30) 06/14/19 05:52 Anion Gap 15 mmol/L 06/14/19 05:52 BUN 68 mg/dL (7-17) H 06/14/19 05:52 Creatinine 5.0 mg/dL (0.7-1.2) H 06/14/19 05:52 Estimated GFR 9 ml/min 06/14/19 05:52 BUN/Creatinine Ratio 14 % 06/14/19 05:52 Glucose 112 mg/dL (65-100) H 06/14/19 05:52 POC Glucose 144 (70-105) H 06/14/19 11:46 Calcium 7.9 mg/dL (8.4-10.2) L 06/14/19 05:52 Phosphorus 5.40 mg/dL (2.5-4.5) H 06/14/19 05:52 Magnesium 1.80 mg/dL (1.7-2.3) 06/11/19 05:37 Total Bilirubin 0.20 mg/dL (0.1-1.2) 06/09/19 20:59 AST 9 units/L (5-40) 06/09/19 20:59 ALT 8 units/L (7-56) 06/09/19 20:59 Alkaline Phosphatase 62 units/L (35-129) 06/09/19 20:59 Lactate Dehydrogenase 216 units/L (91-180) H 06/11/19 09:10 Total Protein 6.2 g/dL (6.3-8.2) L 06/09/19 20:59 Albumin 2.8 g/dL (3.9-5) L 06/09/19 20:59 Albumin/Globulin Ratio 0.8 % 06/09/19 20:59 PTH Intact 238.6 pg/mL (15-65) H 06/11/19 05:37 Urine Color Straw (Yellow) 06/09/19 22:13 Urine Turbidity Clear (Clear) 06/09/19 22:13 Urine pH 5.0 (5.0-7.0) 06/09/19 22:13 Ur Specific [place] 1.014 (1.003-1.030) 06/09/19 22:13 Urine Protein 100 mg/dl mg/dL (Negative) 06/09/19 22:13 Urine Glucose (UA) 50 mg/dL (Negative) 06/09/19 22:13 Urine Ketones Neg mg/dL (Negative) 06/09/19 22:13 Urine Blood Sm (Negative) 06/09/19 22:13 Urine Nitrite Neg (Negative) 06/09/19 22:13 Urine Bilirubin Neg (Negative) 06/09/19 22:13 Urine Urobilinogen < 2.0 mg/dL (<2.0) 06/09/19 22:13 Ur Leukocyte Esterase Neg (Negative) 06/09/19 22:13 Urine WBC (Auto) 8.0 /HPF (0.0-6.0) H 06/09/19 22:13 Urine RBC (Auto) 2.0 /HPF (0.0-6.0) 06/09/19 22:13 U Epithel Cells (Auto) 1.0 /HPF (0-13.0) 06/09/19 22:13 Urine Eosinophils Few easinophil seen (None Seen) 06/10/19 20:39 Urine Creatinine 69.4 mg/dL (0.1-20.0) H 06/10/19 20:39 Urine Microalbumin 6.0 mg/dL (0.1-34.0) 06/10/19 20:39 Microalb/Creat Ratio 86.4 ug/mg 06/10/19 20:39 Urine Sodium 58 mmol/L 06/10/19 20:39 Urine Urea Nitrogen 490 06/10/19 20:39 Urine Total Protein 97 mg/dL (5-11.8) H 06/10/19 20:39 Complement C4 34 mg/dL (15-57) 06/11/19 09:10 Hep Bs Antigen Non-reactive (Negative) 06/11/19 09:10 Hepatitis C Antibody Non-reactive (NonReactive) 06/11/19 09:10 Schistocytes Smear None seen 06/11/19 09:10 Active Medications - Current Medications Current Medications: Generic Name Dose Route Start Last Admin Trade Name Freq PRN Reason Stop Dose Admin Acetaminophen 650 mg 06/10/19 02:20 Tylenol PO Q4H PRN Pain MILD(1-3)/Fever >100.5/MISHRA Amlodipine Besylate 5 mg 06/10/19 08:00 06/14/19 11:01 Amlodipine PO 5 mg DAILY@0800 JONES Administration Clonidine HCl 0.2 mg 06/10/19 10:00 06/14/19 11:01 Catapres PO 0.2 mg BID JONES Administration Dextrose 0 ml 06/10/19 04:10 D50w (25gm) Syringe IV Q30MIN PRN Hypoglycemia Protocol Enoxaparin Sodium 30 mg 06/10/19 10:00 06/14/19 11:01 Enoxaparin SUB-Q 30 mg QDAY JONES Administration Gabapentin 200 mg 06/11/19 10:00 06/14/19 11:01 Gabapentin PO 200 mg DAILY JONES Administration Hydralazine HCl 5 mg 06/12/19 04:07 06/14/19 11:01 Apresoline IV 5 mg Q4HR PRN Administration Blood Pressure Ceftriaxone Sodium 1 gm in 50 mls @ 100 mls/hr 06/10/19 02:22 06/14/19 11:01 Rocephin/Ns 1 Gm/50 Ml IV 100 mls/hr Q24HR JONES Administration Protocol Sodium Bicarbonate 150 meq/ 1,150 mls @ 50 mls/hr 06/12/19 15:00 06/13/19 18:04 Dextrose IV 50 mls/hr DIRECT JONES Administration Lactated Ringer's 1,000 mls @ 75 mls/hr 06/12/19 11:46 06/12/19 12:00 Lactated Ringers IV 75 mls/hr DIRECT JONES Administration Insulin Human Lispro 0 unit 06/10/19 07:30 06/14/19 11:54 Humalog SUB-Q Not Given ACHS JONES Protocol Ondansetron HCl 4 mg 06/10/19 02:20 Zofran IV Q8H PRN Nausea And Vomiting Oxycodone/Acetaminophen 1 tab 06/10/19 02:20 Percocet 5/325 PO Q6H PRN Pain, Moderate (4-6) Sodium Chloride 10 ml 06/10/19 10:00 06/14/19 11:02 Sodium Chloride Flush Syringe 10 Ml IV 10 ml BID JONES Administration Sodium Chloride 10 ml 06/10/19 02:20 Sodium Chloride Flush Syringe 10 Ml IV PRN PRN LINE FLUSH Nutrition/Malnutrition Assess - Dietary Evaluation Nutrition/Malnutrition Findings: Nutrition Notes Start: 06/10/19 12:16 Freq: Status: Active Protocol: Document 06/10/19 12:16 LM (Rec: 06/10/19 12:17 LM [id number]) Nutrition Notes Need for Assessment generated from: principal research economist Initial or Follow up Brief Note Subjective/Other Information RN screen for skin risk. Juancarlos score of 22. Nutrition Intervention Revisit per MD consult or patient Sign Off request:
[2019-06-14] MEDS: SODIUM BICARBONATE 150 MEQ in DEXTROSE 5% IN WATER 1,000 ML IV SCH (16:58)
[2019-06-15 06:04] LABS: Hematocrit 32.5 % (30.3-42.9); Hemoglobin 10.7 gm/dl (10.1-14.3); Mean Corpuscular HGB Conc 33 % (30-34); Mean Corpuscular Volume 90 fl (79-97); Platelet Count 200 K/mm3 (140-440); Red Blood Count 3.62 M/mm3 (3.65-5.03)
[2019-06-15 06:28] LABS: Calcium 7.8 mg/dL (8.4-10.2)
[2019-06-15] MEDS: INSULIN LISPRO 100 UNIT/ML SUB-Q SCH ×3 (10:36→22:21)
[2019-06-15] MEDS: cloNIDine 0.2 MG TAB PO SCH ×2 (10:37→22:26)
[2019-06-15] MEDS: GABAPENTIN 100 MG CAP PO SCH (10:37)
[2019-06-15] MEDS: amLODIPine 5 MG TAB PO SCH (10:37)
[2019-06-15] MEDS: hydrALAZINE 20 MG/1 ML INJ IV PRN (10:59)
[2019-06-15] MEDS: cefTRIAXone/NS 1 GM/50 ML 1 GM/50 ML BAG IV SCH (10:59)
[2019-06-15] MEDS: ENOXAPARIN 30 MG/0.3 ML INJ SUB-Q SCH (11:00)
--- NOTE | 2019-06-15 13:58 | Progress Note ---
Assessment and Plan Assessment: Acute Kidney Injury secondary to ATN vs prerenal azotemia vs progression of CKD, ? AIN from NSAIDs, r/o obstruction Pneumonia Non Anion Gap Metabolic Acidosis, Resolving S/P Hyperkalemia Diabetes Mellitus Type 2 non-insulin dependent S/P Hypertensive Urgency Plan: - Renal function reviewed. Serum creatinine 4.6 today, yesterday's was 5.0. Exact Scr baseline unknown. Suspect underlying CKD due to HTN and DM. - Mild right hydronephrosis on renal ultrasound- S/P cysto, rpg, stent with short internal string on 06/12/19 by Urology- Dr. Johnson - Note to have positive urine eosinophils. ASA on hold. 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 No family at bedside. Reviewed plan of care to include renal biopsy Objective - Vital Signs Vital signs: Vital Signs - 12hr 06/15/19 06/15/19 06/15/19 04:28 07:45 10:59 Temperature 98.0 F 122.0 F H Pulse Rate 79 83 83 Respiratory 18 19 Rate Blood Pressure 166/69 175/73 175/73 O2 Sat by Pulse 96 97 Oximetry - General Appearance General appearance: well-developed, appears stated age EENT: ATNC, PERRL, hearing intact, vision intact Neck: no JVD, supple Respiratory: Present: Decreased Breath Sounds Cardiology: regular, S1S2 Gastrointestinal: normoactive bowel sounds Integumentary: warm and dry Neurologic: alert and oriented x3 Musculoskeletal: joint swelling, other (positive edema (1-2+) to BLE) - Lab 06/15/19 05:09 06/15/19 05:09 Most recent lab results ABG pH 7.279 pH Units (7.350-7.450) L 06/12/19 16:50 ABG pCO2 43.8 mm Hg 06/12/19 16:50 ABG pO2 62.6 mm Hg (80.0-90.0) L 06/12/19 16:50 ABG HCO3 20.0 mmol/L (20.0-26.0) 06/12/19 16:50 ABG O2 Saturation 92.7 % (95.0-99.0) L 06/12/19 16:50 Calcium 7.8 mg/dL (8.4-10.2) L 06/15/19 05:09 Phosphorus 5.30 mg/dL (2.5-4.5) H 06/15/19 05:09 Magnesium 1.80 mg/dL (1.7-2.3) 06/11/19 05:37 Urine Creatinine 69.4 mg/dL (0.1-20.0) H 06/10/19 20:39 Urine Sodium 58 mmol/L 06/10/19 20:39 Urine Total Protein 97 mg/dL (5-11.8) H 06/10/19 20:39 Medications & Allergies - Medications Allergies/Adverse Reactions: Allergies No Known Allergies Allergy (Unverified 06/09/19 18:40) Home Medications: Home Medications Medication Instructions Recorded Confirmed Last Taken Type Aspirin [Aspirin BABY CHEW TAB] 81 mg PO QDAY 06/10/19 06/10/19 Unknown History Gabapentin [Neurontin] 400 mg PO BID 06/10/19 06/10/19 Unknown History amLODIPine [Norvasc] 5 mg PO DAILY 06/10/19 06/10/19 Unknown History cloNIDine [Catapres] 0.2 mg PO BID 06/10/19 06/10/19 Unknown History Active Medications: Generic Name Dose Route Start Last Admin Trade Name Freq PRN Reason Stop Dose Admin Acetaminophen 650 mg 06/10/19 02:20 Tylenol PO Q4H PRN Pain MILD(1-3)/Fever >100.5/MISHRA Amlodipine Besylate 5 mg 06/10/19 08:00 06/15/19 10:37 Amlodipine PO Not Given DAILY@0800 JONES Clonidine HCl 0.2 mg 06/10/19 10:00 06/15/19 10:37 Catapres PO Not Given BID JONES Dextrose 0 ml 06/10/19 04:10 D50w (25gm) Syringe IV Q30MIN PRN Hypoglycemia Protocol Enoxaparin Sodium 30 mg 06/10/19 10:00 06/15/19 11:00 Enoxaparin SUB-Q 30 mg QDAY JONES Administration Gabapentin 200 mg 06/11/19 10:00 06/15/19 10:37 Gabapentin PO Not Given DAILY [facility] Hydralazine HCl 5 mg 06/12/19 04:07 06/15/19 10:59 Apresoline IV 5 mg Q4HR PRN Administration Blood Pressure Ceftriaxone Sodium 1 gm in 50 mls @ 100 mls/hr 06/10/19 02:22 06/15/19 12:17 Rocephin/Ns 1 Gm/50 Ml IV Infused Q24HR JONES Infusion Protocol Sodium Bicarbonate 150 meq/ 1,150 mls @ 50 mls/hr 06/12/19 15:00 06/14/19 16:58 Dextrose IV 50 mls/hr DIRECT JONES Administration Insulin Human Lispro 0 unit 06/10/19 07:30 06/15/19 10:36 Humalog SUB-Q Not Given ACHS [facility] Protocol Ondansetron HCl 4 mg 06/10/19 02:20 Zofran IV Q8H PRN Nausea And Vomiting Oxycodone/Acetaminophen 1 tab 06/10/19 02:20 Percocet 5/325 PO Q6H PRN Pain, Moderate (4-6) Sodium Chloride 10 ml 06/10/19 10:00 06/15/19 11:00 Sodium Chloride Flush Syringe 10 Ml IV 10 ml BID JOENS Administration Sodium Chloride 10 ml 06/10/19 02:20 Sodium Chloride Flush Syringe 10 Ml IV PRN PRN LINE FLUSH
--- NOTE | 2019-06-15 17:47 | Progress Note ---
Assessment and Plan Assessment and plan: Acute on chronic renal failure due to ATN versus vasomotor nephropathy Nephrology consulted, following Cont iv fluids Bibasilar opacities due to atelectasis,pleural effusion Patient does not have pneumonia-ruled out Bilateral small pleural effusions Monitor Hyperkalemia resolved, status post Kayexalate, Diabetes Check fingersticks qac and hs Hypertension Monitor BP 06/12 Patient with acute on CKD, improving slowly. Cr 5.1. US showed right hydronephrosis. Urology consulted. Dr. Johnson did cysto, rpg, stent with short internal string. patient with acute on CKD. had procedure by Dr. Saucedo yesterday. 06/13 No new complaints. For kidney biopsy tomorrow as per nephrology 06/14 Creatinine mild improvement, Cr 4.6. kidney biopsy poss tomorrow. Discussed with Bri with Nephrology History Interval history: Patient sent in because of abnormal renal function, Diagnosed with acute on CKD Hospitalist Physical - Physical exam Narrative exam: GEN: Not in acute distress, lying in bed, obese HEENT: Normocephalic, atraumatic, Neck: supple, No JVD Lungs: Clear to auscultation ,no wheeze, heart;S1 and S2 reg, no murmurs, rubs or gallop Abd:soft, non tender, normal BS Ext: No edema, no clubbing, no cyanosis Neuro: Awake,alert, oriented X 3, no focal neurological signs - Constitutional Vitals: Temp Pulse Resp BP Pulse Ox 98.1 F 96 H 20 179/77 94 06/15/19 16:03 06/15/19 16:03 06/15/19 16:03 06/15/19 16:03 06/15/19 16:03 Results - Labs CBC & Chem 7: 06/15/19 05:09 06/15/19 05:09 Labs: Laboratory Last Values WBC 9.6 K/mm3 (4.5-11.0) 06/15/19 05:09 RBC 3.62 M/mm3 (3.65-5.03) L 06/15/19 05:09 Hgb 10.7 gm/dl (10.1-14.3) 06/15/19 05:09 Hct 32.5 % (30.3-42.9) 06/15/19 05:09 MCV 90 fl (79-97) 06/15/19 05:09 MCH 30 pg (28-32) 06/15/19 05:09 MCHC 33 % (30-34) 06/15/19 05:09 RDW 15.0 % (13.2-15.2) 06/15/19 05:09 Plt Count 200 K/mm3 (140-440) 06/15/19 05:09 Lymph % (Auto) 11.2 % (13.4-35.0) L 06/10/19 05:28 [place] % (Auto) 8.9 % (0.0-7.3) H 06/10/19 05:28 Eos % (Auto) 3.0 % (0.0-4.3) 06/10/19 05:28 Baso % (Auto) 0.7 % (0.0-1.8) 06/10/19 05:28 Lymph # 1.1 K/mm3 (1.2-5.4) L 06/10/19 05:28 [place] # 0.8 K/mm3 (0.0-0.8) 06/10/19 05:28 Eos # 0.3 K/mm3 (0.0-0.4) 06/10/19 05:28 Baso # 0.1 K/mm3 (0.0-0.1) 06/10/19 05:28 Seg Neutrophils % 76.2 % (40.0-70.0) H 06/10/19 05:28 Seg Neutrophils # 7.1 K/mm3 (1.8-7.7) 06/10/19 05:28 PT 15.0 Sec. (12.2-14.9) H 06/12/19 08:28 INR 1.16 (0.87-1.13) H 06/12/19 08:28 APTT 45.1 Sec. (24.2-36.6) H 06/12/19 08:28 ABG pH 7.279 pH Units (7.350-7.450) L 06/12/19 16:50 ABG pCO2 43.8 mm Hg 06/12/19 16:50 ABG pO2 62.6 mm Hg (80.0-90.0) L 06/12/19 16:50 ABG HCO3 20.0 mmol/L (20.0-26.0) 06/12/19 16:50 ABG O2 Saturation 92.7 % (95.0-99.0) L 06/12/19 16:50 ABG O2 Content 14.9 (0.0-44) 06/12/19 16:50 ABG Base Excess -6.5 mmol/L (-2.0-3.0) L 06/12/19 16:50 ABG Hemoglobin 11.7 gm/dl (12.0-16.0) L 06/12/19 16:50 ABG Carboxyhemoglobin 1.8 % (0.0-5.0) 06/12/19 16:50 ABG Methemoglobin 0.6 % (0.0-1.5) 06/12/19 16:50 Oxyhemoglobin 90.5 % (95.0-99.0) L 06/12/19 16:50 FiO2 21 % 06/12/19 16:50 Sodium 138 mmol/L (137-145) 06/15/19 05:09 Potassium 3.8 mmol/L (3.6-5.0) 06/15/19 05:09 Chloride 100.6 mmol/L (98-107) 06/15/19 05:09 Carbon Dioxide 22 mmol/L (22-30) 06/15/19 05:09 Anion Gap 19 mmol/L 06/15/19 05:09 BUN 70 mg/dL (7-17) H 06/15/19 05:09 Creatinine 4.6 mg/dL (0.7-1.2) H 06/15/19 05:09 Estimated GFR 10 ml/min 06/15/19 05:09 BUN/Creatinine Ratio 15 % 06/15/19 05:09 Glucose 135 mg/dL (65-100) H 06/15/19 05:09 POC Glucose 159 (70-105) H 06/15/19 16:14 Calcium 7.8 mg/dL (8.4-10.2) L 06/15/19 05:09 Phosphorus 5.30 mg/dL (2.5-4.5) H 06/15/19 05:09 Magnesium 1.80 mg/dL (1.7-2.3) 06/11/19 05:37 Total Bilirubin 0.20 mg/dL (0.1-1.2) 06/09/19 20:59 AST 9 units/L (5-40) 06/09/19 20:59 ALT 8 units/L (7-56) 06/09/19 20:59 Alkaline Phosphatase 62 units/L (35-129) 06/09/19 20:59 Lactate Dehydrogenase 216 units/L (91-180) H 06/11/19 09:10 Total Protein 6.2 g/dL (6.3-8.2) L 06/09/19 20:59 Albumin 2.8 g/dL (3.9-5) L 06/09/19 20:59 Albumin/Globulin Ratio 0.8 % 06/09/19 20:59 PTH Intact 238.6 pg/mL (15-65) H 06/11/19 05:37 Urine Color Straw (Yellow) 06/09/19 22:13 Urine Turbidity Clear (Clear) 06/09/19 22:13 Urine pH 5.0 (5.0-7.0) 06/09/19 22:13 Ur Specific [place] 1.014 (1.003-1.030) 06/09/19 22:13 Urine Protein 100 mg/dl mg/dL (Negative) 06/09/19 22:13 Urine Glucose (UA) 50 mg/dL (Negative) 06/09/19 22:13 Urine Ketones Neg mg/dL (Negative) 06/09/19 22:13 Urine Blood Sm (Negative) 06/09/19 22:13 Urine Nitrite Neg (Negative) 06/09/19 22:13 Urine Bilirubin Neg (Negative) 06/09/19 22:13 Urine Urobilinogen < 2.0 mg/dL (<2.0) 06/09/19 22:13 Ur Leukocyte Esterase Neg (Negative) 06/09/19 22:13 Urine WBC (Auto) 8.0 /HPF (0.0-6.0) H 06/09/19 22:13 Urine RBC (Auto) 2.0 /HPF (0.0-6.0) 06/09/19 22:13 U Epithel Cells (Auto) 1.0 /HPF (0-13.0) 06/09/19 22:13 Urine Eosinophils Few easinophil seen (None Seen) 06/10/19 20:39 Urine Creatinine 69.4 mg/dL (0.1-20.0) H 06/10/19 20:39 Urine Microalbumin 6.0 mg/dL (0.1-34.0) 06/10/19 20:39 Microalb/Creat Ratio 86.4 ug/mg 06/10/19 20:39 Urine Sodium 58 mmol/L 06/10/19 20:39 Urine Urea Nitrogen 490 06/10/19 20:39 Urine Total Protein 97 mg/dL (5-11.8) H 06/10/19 20:39 Complement C4 34 mg/dL (15-57) 06/11/19 09:10 Hep Bs Antigen Non-reactive (Negative) 06/11/19 09:10 Hepatitis C Antibody Non-reactive (NonReactive) 06/11/19 09:10 Schistocytes Smear None seen 06/11/19 09:10 Active Medications - Current Medications Current Medications: Generic Name Dose Route Start Last Admin Trade Name Freq PRN Reason Stop Dose Admin Acetaminophen 650 mg 06/10/19 02:20 Tylenol PO Q4H PRN Pain MILD(1-3)/Fever >100.5/MISHRA Amlodipine Besylate 5 mg 06/10/19 08:00 06/15/19 10:37 Amlodipine PO Not Given DAILY@0800 JONES Clonidine HCl 0.2 mg 06/10/19 10:00 06/15/19 10:37 Catapres PO Not Given BID JONES Dextrose 0 ml 06/10/19 04:10 D50w (25gm) Syringe IV Q30MIN PRN Hypoglycemia Protocol Enoxaparin Sodium 30 mg 06/10/19 10:00 06/15/19 11:00 Enoxaparin SUB-Q 30 mg QDAY JONES Administration Gabapentin 200 mg 06/11/19 10:00 06/15/19 10:37 Gabapentin PO Not Given DAILY JONES Hydralazine HCl 5 mg 06/12/19 04:07 06/15/19 10:59 Apresoline IV 5 mg Q4HR PRN Administration Blood Pressure Ceftriaxone Sodium 1 gm in 50 mls @ 100 mls/hr 06/10/19 02:22 06/15/19 12:17 Rocephin/Ns 1 Gm/50 Ml IV Infused Q24HR JONES Infusion Protocol Sodium Bicarbonate 150 meq/ 1,150 mls @ 50 mls/hr 06/12/19 15:00 06/14/19 1 6:58 Dextrose IV 50 mls/hr DIRECT JONES Administration Insulin Human Lispro 0 unit 06/10/19 07:30 06/15/19 15:38 Humalog SUB-Q Not Given ACHS [facility] Protocol Ondansetron HCl 4 mg 06/10/19 02:20 Zofran IV Q8H PRN Nausea And Vomiting Oxycodone/Acetaminophen 1 tab 06/10/19 02:20 Percocet 5/325 PO Q6H PRN Pain, Moderate (4-6) Sodium Chloride 10 ml 06/10/19 10:00 06/15/19 11:00 Sodium Chloride Flush Syringe 10 Ml IV 10 ml BID JONES Administration Sodium Chloride 10 ml 06/10/19 02:20 Sodium Chloride Flush Syringe 10 Ml IV PRN PRN LINE FLUSH Nutrition/Malnutrition Assess - Dietary Evaluation Nutrition/Malnutrition Findings: Nutrition Notes Start: 06/10/19 12:16 Freq: Status: Active Protocol: Document 06/10/19 12:16 LM (Rec: 06/10/19 12:17 LM [email or web address]) Nutrition Notes 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 Juancarlos score of 22. Nutrition Intervention Revisit per MD consult or patient Sign Off request:
[2019-06-16] MEDS: hydrALAZINE 20 MG/1 ML INJ IV PRN ×4 (05:46→22:12)
[2019-06-16 07:17] LABS: HIV-1 Antibody Differentiation SEE SCANNED RESULT; HIV-2 Antibody Differentiation SEE SCANNED RESULT
[2019-06-16 08:39] LABS: Hematocrit 33.8 % (30.3-42.9); Hemoglobin 11.3 gm/dl (10.1-14.3); Mean Corpuscular HGB Conc 33 % (30-34); Mean Corpuscular Volume 89 fl (79-97); Platelet Count 205 K/mm3 (140-440); Red Blood Count 3.79 M/mm3 (3.65-5.03); Red Cell Distribution Width 14.7 % (13.2-15.2)
--- NOTE | 2019-06-16 08:48 | Progress Note ---
Assessment and Plan Acute Kidney Injury secondary to ATN vs prerenal azotemia vs progression of CKD, ? AIN from NSAIDs, r/o obstruction Pneumonia Non Anion Gap Metabolic Acidosis, Resolving S/P Hyperkalemia Diabetes Mellitus Type 2 non-insulin dependent S/P Hypertensive Urgency Plan: - Cr and BUN slowly imporving but remains significantly abnormal - Mild right hydronephrosis on renal ultrasound- S/P cysto, rpg, stent with short internal string on 06/12/19 by Urology- Dr. Johnson - Note to have positive urine eosinophils. ASA on hold. Secondary GN and vasculitis work up in progress - No significant improvement in renal function, therefore, will proceed with renal biopsy today on 06/16/19 - No acute indication for initiation of HD today, but will monitor renal function daily - Meatoblic Acidosis- On bicarb drip - Low potassium diet - Renally dose medications - Strict intake and output - Light Catheter: No - Will continue to monitor renal function closely Lew Torres MD [phone] Subjective Date of service: 06/16/19 Principal diagnosis: LEONOR Interval history: denies acute issues, awaiting kidney biopsy Objective - Vital Signs Vital signs: Vital Signs - 12hr 06/15/19 06/15/19 06/15/19 22:00 22:26 23:49 Temperature 98.2 F Pulse Rate 88 88 89 Pulse Rate [ 87 From Monitor] Respiratory 18 Rate Blood Pressure 196/87 189/75 O2 Sat by Pulse 95 Oximetry 06/16/19 06/16/19 06/16/19 04:38 05:46 07:03 Temperature 98.0 F Pulse Rate 84 84 Pulse Rate [ From Monitor] Respiratory 18 Rate Blood Pressure 195/77 195/77 179/78 O2 Sat by Pulse 94 Oximetry - General Appearance General appearance: well-developed, well-nourished, obese EENT: ATNC, PERRL Neck: no JVD, no carotid bruit Respiratory: Present: Clear to Ascultation. Absent: Rales, Ronchi Cardiology: regular, S1S2 Gastrointestinal: normoactive bowel sounds, no tenderness, no distended Integumentary: no rash, warm and dry Neurologic: no focal deficit, no asterixis, alert and oriented x3 Musculoskeletal: other (no edema in BLE) Psychiatric: mood/affect appropriate, cooperative - Lab 06/16/19 08:07 06/16/19 08:07 Most recent lab results ABG pH 7.279 pH Units (7.350-7.450) L 06/12/19 16:50 ABG pCO2 43.8 mm Hg 06/12/19 16:50 ABG pO2 62.6 mm Hg (80.0-90.0) L 06/12/19 16:50 ABG HCO3 20.0 mmol/L (20.0-26.0) 06/12/19 16:50 ABG O2 Saturation 92.7 % (95.0-99.0) L 06/12/19 16:50 Calcium 7.8 mg/dL (8.4-10.2) L 06/15/19 05:09 Phosphorus 5.30 mg/dL (2.5-4.5) H 06/15/19 05:09 Magnesium 1.80 mg/dL (1.7-2.3) 06/11/19 05:37 Urine Creatinine 69.4 mg/dL (0.1-20.0) H 06/10/19 20:39 Urine Sodium 58 mmol/L 06/10/19 20:39 Urine Total Protein 97 mg/dL (5-11.8) H 06/10/19 20:39 Medications & Allergies - Medications Allergies/Adverse Reactions: Allergies No Known Allergies Allergy (Unverified 06/09/19 18:40) Home Medications: Home Medications Medication Instructions Recorded Confirmed Last Taken Type Aspirin [Aspirin BABY CHEW TAB] 81 mg PO QDAY 06/10/19 06/10/19 Unknown History Gabapentin [Neurontin] 400 mg PO BID 06/10/19 06/10/19 Unknown History amLODIPine [Norvasc] 5 mg PO DAILY 06/10/19 06/10/19 Unknown History cloNIDine [Catapres] 0.2 mg PO BID 06/10/19 06/10/19 Unknown History Active Medications: Generic Name Dose Route Start Last Admin Trade Name Freq PRN Reason Stop Dose Admin Acetaminophen 650 mg 06/10/19 02:20 Tylenol PO Q4H PRN Pain MILD(1-3)/Fever >100.5/MISHRA Amlodipine Besylate 5 mg 06/10/19 08:00 06/15/19 10:37 Amlodipine PO Not Given DAILY@0800 [facility] Clonidine HCl 0.2 mg 06/10/19 10:00 06/15/19 22:26 Catapres PO 0.2 mg BID JONES Administration Dextrose 0 ml 06/10/19 04:10 D50w (25gm) Syringe IV Q30MIN PRN Hypoglycemia Protocol Enoxaparin Sodium 30 mg 06/10/19 10:00 06/15/19 11:00 Enoxaparin SUB-Q 30 mg QDAY JONES Administration Gabapentin 200 mg 06/11/19 10:00 06/15/19 10:37 Gabapentin PO Not Given DAILY JONES Hydralazine HCl 5 mg 06/12/19 04:07 06/16/19 05:46 Apresoline IV 5 mg Q4HR PRN Administration Blood Pressure Sodium Bicarbonate 150 meq/ 1,150 mls @ 50 mls/hr 06/12/19 15:00 06/14/19 16:58 Dextrose IV 50 mls/hr DIRECT JONES Administration Insulin Human Lispro 0 unit 06/10/19 07:30 06/15/19 22:21 Humalog SUB-Q Not Given ACHS [facility] Protocol Ondansetron HCl 4 mg 06/10/19 02:20 Zofran IV Q8H PRN Nausea And Vomiting Oxycodone/Acetaminophen 1 tab 06/10/19 02:20 Percocet 5/325 PO Q6H PRN Pain, Moderate (4-6) Sodium Chloride 10 ml 06/10/19 10:00 06/15/19 22:27 Sodium Chloride Flush Syringe 10 Ml IV 10 ml BID JONES Administration Sodium Chloride 10 ml 06/10/19 02:20 Sodium Chloride Flush Syringe 10 Ml IV PRN PRN LINE FLUSH
[2019-06-16 08:55] LABS: Calcium 8.2 mg/dL (8.4-10.2)
[2019-06-16] MEDS: amLODIPine 5 MG TAB PO SCH (09:26)
[2019-06-16] MEDS: ENOXAPARIN 30 MG/0.3 ML INJ SUB-Q SCH (09:27)
[2019-06-16] MEDS: GABAPENTIN 100 MG CAP PO SCH (09:27)
[2019-06-16] MEDS: cloNIDine 0.2 MG TAB PO SCH ×2 (09:27→22:12)
[2019-06-16] MEDS: INSULIN LISPRO 100 UNIT/ML SUB-Q SCH ×5 (09:28→22:17)
[2019-06-16 12:08] LABS: ANA Screen, IFA Negative (Negative); Myeloperoxidase Antibody <1.0 AI (<1.0)
--- NOTE | 2019-06-16 12:59 | Progress Note ---
Assessment and Plan Assessment and plan: Acute on chronic renal failure due to ATN versus vasomotor nephropathy Nephrology following. Kidney biopsy this morning. Cont iv fluids Right hydronephrosis. Urology consulted and performed cysto, rpg, stent with short internal string. Bibasilar opacities due to atelectasis,pleural effusion Patient does not have pneumonia-ruled out Bilateral small pleural effusions Monitor Hyperkalemia resolved, status post Kayexalate, Diabetes Check fingersticks qac and hs. SSRI Hypertension. Continue antihypertensive medications. History Interval history: No new issues overnight. Hospitalist Physical - Constitutional Vitals: Temp Pulse Resp BP Pulse Ox 98.3 F 84 18 168/74 96 06/16/19 11:44 06/16/19 11:45 06/16/19 11:44 06/16/19 11:45 06/16/19 11:44 General appearance: Present: no acute distress, well-nourished - EENT Eyes: Present: PERRL, EOM intact ENT: hearing intact, clear oral mucosa, dentition normal - Neck Neck: Present: supple, normal ROM - Respiratory Respiratory effort: normal Respiratory: bilateral: CTA - Cardiovascular Rhythm: regular Heart Sounds: Present: S1 & S2. Absent: gallop, rub - Extremities Extremities: no ischemia, No edema, Full ROM - Abdominal General gastrointestinal: soft, non-tender, non-distended, normal bowel sounds - Integumentary Integumentary: Present: clear, warm, dry - Neurologic Neurologic: CNII-XII intact, moves all extremities Results - Labs CBC & Chem 7: 06/16/19 08:07 06/16/19 08:07 Labs: Laboratory Last Values WBC 8.5 K/mm3 (4.5-11.0) 06/16/19 08:07 RBC 3.79 M/mm3 (3.65-5.03) 06/16/19 08:07 Hgb 11.3 gm/dl (10.1-14.3) 06/16/19 08:07 Hct 33.8 % (30.3-42.9) 06/16/19 08:07 MCV 89 fl (79-97) 06/16/19 08:07 MCH 30 pg (28-32) 06/16/19 08:07 MCHC 33 % (30-34) 06/16/19 08:07 RDW 14.7 % (13.2-15.2) 06/16/19 08:07 Plt Count 205 K/mm3 (140-440) 06/16/19 08:07 Lymph % (Auto) 11.2 % (13.4-35.0) L 06/10/19 05:28 [place] % (Auto) 8.9 % (0.0-7.3) H 06/10/19 05:28 Eos % (Auto) 3.0 % (0.0-4.3) 06/10/19 05:28 Baso % (Auto) 0.7 % (0.0-1.8) 06/10/19 05:28 Lymph # 1.1 K/mm3 (1.2-5.4) L 06/10/19 05:28 [place] # 0.8 K/mm3 (0.0-0.8) 06/10/19 05:28 Eos # 0.3 K/mm3 (0.0-0.4) 06/10/19 05:28 Baso # 0.1 K/mm3 (0.0-0.1) 06/10/19 05:28 Seg Neutrophils % 76.2 % (40.0-70.0) H 06/10/19 05:28 Seg Neutrophils # 7.1 K/mm3 (1.8-7.7) 06/10/19 05:28 PT 15.0 Sec. (12.2-14.9) H 06/12/19 08:28 INR 1.16 (0.87-1.13) H 06/12/19 08:28 APTT 45.1 Sec. (24.2-36.6) H 06/12/19 08:28 ABG pH 7.279 pH Units (7.350-7.450) L 06/12/19 16:50 ABG pCO2 43.8 mm Hg 06/12/19 16:50 ABG pO2 62.6 mm Hg (80.0-90.0) L 06/12/19 16:50 ABG HCO3 20.0 mmol/L (20.0-26.0) 06/12/19 16:50 ABG O2 Saturation 92.7 % (95.0-99.0) L 06/12/19 16:50 ABG O2 Content 14.9 (0.0-44) 06/12/19 16:50 ABG Base Excess -6.5 mmol/L (-2.0-3.0) L 06/12/19 16:50 ABG Hemoglobin 11.7 gm/dl (12.0-16.0) L 06/12/19 16:50 ABG Carboxyhemoglobin 1.8 % (0.0-5.0) 06/12/19 16:50 ABG Methemoglobin 0.6 % (0.0-1.5) 06/12/19 16:50 Oxyhemoglobin 90.5 % (95.0-99.0) L 06/12/19 16:50 FiO2 21 % 06/12/19 16:50 Sodium 142 mmol/L (137-145) 06/16/19 08:07 Potassium 3.9 mmol/L (3.6-5.0) 06/16/19 08:07 Chloride 104.1 mmol/L (98-107) 06/16/19 08:07 Carbon Dioxide 20 mmol/L (22-30) L 06/16/19 08:07 Anion Gap 22 mmol/L 06/16/19 08:07 BUN 60 mg/dL (7-17) H 06/16/19 08:07 Creatinine 4.4 mg/dL (0.7-1.2) H 06/16/19 08:07 Estimated GFR 10 ml/min 06/16/19 08:07 BUN/Creatinine Ratio 14 % 06/16/19 08:07 Glucose 123 mg/dL (65-100) H 06/16/19 08:07 POC Glucose 117 (70-105) H 06/16/19 11:24 Calcium 8.2 mg/dL (8.4-10.2) L 06/16/19 08:07 Phosphorus 4.50 mg/dL (2.5-4.5) 06/16/19 08:07 Magnesium 1.80 mg/dL (1.7-2.3) 06/11/19 05:37 Total Bilirubin 0.20 mg/dL (0.1-1.2) 06/09/19 20:59 AST 9 units/L (5-40) 06/09/19 20:59 ALT 8 units/L (7-56) 06/09/19 20:59 Alkaline Phosphatase 62 units/L (35-129) 06/09/19 20:59 Lactate Dehydrogenase 216 units/L (91-180) H 06/11/19 09:10 Total Protein 6.2 g/dL (6.3-8.2) L 06/09/19 20:59 Albumin 2.8 g/dL (3.9-5) L 06/09/19 20:59 Albumin/Globulin Ratio 0.8 % 06/09/19 20:59 PTH Intact 238.6 pg/mL (15-65) H 06/11/19 05:37 Urine Color Straw (Yellow) 06/09/19 22:13 Urine Turbidity Clear (Clear) 06/09/19 22:13 Urine pH 5.0 (5.0-7.0) 06/09/19 22:13 Ur Specific [place] 1.014 (1.003-1.030) 06/09/19 22:13 Urine Protein 100 mg/dl mg/dL (Negative) 06/09/19 22:13 Urine Glucose (UA) 50 mg/dL (Negative) 06/09/19 22:13 Urine Ketones Neg mg/dL (Negative) 06/09/19 22:13 Urine Blood Sm (Negative) 06/09/19 22:13 Urine Nitrite Neg (Negative) 06/09/19 22:13 Urine Bilirubin Neg (Negative) 06/09/19 22:13 Urine Urobilinogen < 2.0 mg/dL (<2.0) 06/09/19 22:13 Ur Leukocyte Esterase Neg (Negative) 06/09/19 22:13 Urine WBC (Auto) 8.0 /HPF (0.0-6.0) H 06/09/19 22:13 Urine RBC (Auto) 2.0 /HPF (0.0-6.0) 06/09/19 22:13 U Epithel Cells (Auto) 1.0 /HPF (0-13.0) 06/09/19 22:13 Urine Eosinophils Few easinophil seen (None Seen) 06/10/19 20:39 Urine Creatinine 69.4 mg/dL (0.1-20.0) H 06/10/19 20:39 Urine Microalbumin 6.0 mg/dL (0.1-34.0) 06/10/19 20:39 Microalb/Creat Ratio 86.4 ug/mg 06/10/19 20:39 Urine Sodium 58 mmol/L 06/10/19 20:39 Urine Urea Nitrogen 490 06/10/19 20:39 Urine Total Protein 97 mg/dL (5-11.8) H 06/10/19 20:39 SKYLER Screen Negative (Negative) 06/11/19 09:10 Proteinase 3 (PR3) Ab <1.0 AI (<1.0) 06/11/19 09:10 Myeloperoxidase Ab <1.0 AI (<1.0) 06/11/19 09:10 Complement C4 34 mg/dL (15-57) 06/11/19 09:10 Hep Bs Antigen Non-reactive (Negative) 06/11/19 09:10 Hepatitis C Antibody Non-reactive (NonReactive) 06/11/19 09:10 HIV-1 Antibody See scanned result 06/11/19 09:10 HIV-2 Ab (Immunoblot) See scanned result 06/11/19 09:10 Schistocytes Smear None seen 06/11/19 09:10 Active Medications - Current Medications Current Medications: Generic Name Dose Route Start Last Admin Trade Name Freq PRN Reason Stop Dose Admin Acetaminophen 650 mg 06/10/19 02:20 Tylenol PO Q4H PRN Pain MILD(1-3)/Fever >100.5/MISHRA Amlodipine Besylate 5 mg 06/10/19 08:00 06/16/19 09:26 Amlodipine PO 5 mg DAILY@0800 JONES Administration Clonidine HCl 0.2 mg 06/10/19 10:00 06/16/19 09:27 Catapres PO 0.2 mg BID JONES Administration Dextrose 0 ml 06/10/19 04:10 D50w (25gm) Syringe IV Q30MIN PRN Hypoglycemia Protocol Enoxaparin Sodium 30 mg 06/10/19 10:00 06/16/19 09:27 Enoxaparin SUB-Q 30 mg QDAY JONES Administration Gabapentin 200 mg 06/11/19 10:00 06/16/19 09:27 Gabapentin PO 200 mg DAILY JONES Administration Hydralazine HCl 5 mg 06/12/19 04:07 06/16/19 11:45 Apresoline IV 5 mg Q4HR PRN Administration Blood Pressure Sodium Bicarbonate 150 meq/ 1,150 mls @ 50 mls/hr 06/12/19 15:00 06/14/19 16:58 Dextrose IV 50 mls/hr DIRECT JONES Administration Insulin Human Lispro 0 unit 06/10/19 07:30 06/16/19 12:44 Humalog SUB-Q Not Given ACHS [facility] Protocol Ondansetron HCl 4 mg 06/10/19 02:20 Zofran IV Q8H PRN Nausea And Vomiting Oxycodone/Acetaminophen 1 tab 06/10/19 02:20 Percocet 5/325 PO Q6H PRN Pain, Moderate (4-6) Sodium Chloride 10 ml 06/10/19 10:00 06/16/19 09:28 Sodium Chloride Flush Syringe 10 Ml IV 10 ml BID JONES Administration Sodium Chloride 10 ml 06/10/19 02:20 Sodium Chloride Flush Syringe 10 Ml IV PRN PRN LINE FLUSH Nutrition/Malnutrition Assess - Dietary Evaluation Nutrition/Malnutrition Findings: Nutrition Notes Start: 06/10/19 12:16 Freq: Status: Active Protocol: Document 06/16/19 11:40 LP (Rec: 06/16/19 11:41 LP [id number]) Nutrition Notes Need for Assessment generated from: LOS Initial or Follow up Brief Note Subjective/Other Information Screen for LOS. Unable to see pt at time of visit and currently NPO. Nutrition Intervention Follow-Up By: 06/17/19 Additional Comments Follow for LOS
[2019-06-17 07:00] LABS: Calcium 8.2 mg/dL (8.4-10.2)
[2019-06-17] MEDS: INSULIN LISPRO 100 UNIT/ML SUB-Q SCH ×2 (08:17→12:36)
[2019-06-17] MEDS: hydrALAZINE 20 MG/1 ML INJ IV PRN ×2 (08:26→14:35)
[2019-06-17] MEDS: amLODIPine 5 MG TAB PO SCH (09:18)
[2019-06-17] MEDS: cloNIDine 0.2 MG TAB PO SCH (09:19)
[2019-06-17] MEDS: GABAPENTIN 100 MG CAP PO SCH (09:19)
[2019-06-17] MEDS: ENOXAPARIN 30 MG/0.3 ML INJ SUB-Q SCH (09:19)
[2019-06-17] MEDS ORDERED: amLODIPine 5 MG TAB PO SCH (11:24)
--- NOTE | 2019-06-17 11:37 | Discharge Summary ---
Providers - Providers Date of Admission: 06/09/19 23:54 Date of discharge: 06/17/19 Attending physician: BOB HOPSON 06/10/19 00:37 Consult to Physician [CONS] Stat Comment: Dr. Arriaza spoke with Dr. Saravia @ [phone] Consulting Provider: SCOTT SARAVIA Physician Instructions: Reason For Exam: Acute renal failure 06/11/19 08:22 Consult to Physician [CONS] Routine Comment: Consulting Provider: MARICHUY KIMBLE Physician Instructions: Reason For Exam: right hydronephrosis on renal US Primary care physician: TRUE STEWART Hospitalization Reason for admission: hyperkalemia Condition: Stable Hospital course: This is a 64 y/o F with PMH of HTN, DM type 2 non-insulin, hyperlipidemia, and CKD3 who presented from [facility] with abnormal labs. Pt was found to have a SCr level of 6.1 on admission and hypokalemia with a potassium of 5.1. CXR showed bibasilar pleural parenchymal opacities, right > left. The patient was admitted with diagnosis of acute on chronic renal failure due to ATN versus prerenal azotemia versus progression of CKD versus obstruction versus AIN. Therefore, etiology most likely multifactorial. Patient was seen by nephrology in consultation. The acute interstitial nephritis might be from NSAIDs. The patient did have positive eosinophils. Also, as noted above, contributing to the renal failure patient was noted to have possible obstruction with mild right hydronephrosis on renal ultrasound. Urology was consulted and patient underwent cysto, rpg, stent with short internal string on 06/12/19. On admission, patient was also noted to have non-anion gap metabolic acidosis that required bicarbonate drip that was later discontinued. Nephrology felt that there was no acute indication for initiation of hemodialysis and renal function was monitored daily. Patient had some improvement but did not return to normal. Nephrology plan for renal biopsy but it was unable to be completed. Therefore, nephrology felt patient could discharge back to the care home facility and have further follow-up as an outpatient. Creatinine did stabilize and will also be followed up. Patient will discharge on a low potassium diet. The current creatinine may represent her new baseline for CKD. Patient should also follow-up with urology in 3 to 4 weeks for stent removal. Dedicated discharge time 35 minutes Disposition: [id number] Time spent for discharge: 35 - Discharge Diagnoses (1) CKD (chronic kidney disease) stage 3, GFR 30-59 ml/min Status: Acute (2) HTN (hypertension) Status: Acute (3) CAD (coronary artery disease) Status: Acute (4) HLD (hyperlipidemia) Status: Acute (5) AIN (acute interstitial nephritis) Status: Acute (6) Hydronephrosis Status: Acute (7) Acute renal failure Status: Acute Core Measure Documentation - Palliative Care Palliative Care/ Comfort Measures: Not Applicable - Core Measures Any of the following diagnoses?: none Exam - Constitutional Vitals: Temp Pulse Resp BP Pulse Ox 98.3 F 99 H 18 196/90 94 06/17/19 08:00 06/17/19 10:00 06/17/19 08:00 06/17/19 10:47 06/17/19 10:00 General appearance: Present: no acute distress, well-nourished - EENT Eyes: Present: PERRL ENT: hearing intact, clear oral mucosa - Neck Neck: Present: supple, normal ROM - Respiratory Respiratory effort: normal Respiratory: bilateral: CTA - Cardiovascular Heart Sounds: Present: S1 & S2. Absent: rub, click - Extremities Extremities: pulses symmetrical, No edema Peripheral Pulses: within normal limits - Abdominal General gastrointestinal: Present: soft, non-tender, non-distended, normal bowel sounds Female genitourinary: Present: normal - Integumentary Integumentary: Present: clear, warm, dry - Musculoskeletal Musculoskeletal: gait normal, strength equal bilaterally - Psychiatric Psychiatric: appropriate mood/affect, intact judgment & insight - Neurologic Neurologic: CNII-XII intact, moves all extremities Plan Activity: advance as tolerated Weight Bearing Status: Weight Bear as Tolerated Diet: renal, other (low potassium) Follow up with: TRUE STEWART MD [Primary Care Provider] - 3-5 Days PEARL BOWMAN MD [Staff Physician] - 7 Days MARICHUY KIMBLE MD [Staff Physician] - 14 Days
[2019-06-17] MEDS ORDERED: amLODIPine 10 MG TAB PO SCH (12:00)
--- NOTE | 2019-06-17 12:24 | Progress Note ---
Assessment and Plan Assessment: Acute Kidney Injury secondary to ATN vs prerenal azotemia vs progression of CKD, ? AIN from NSAIDs, r/o obstruction Pneumonia Non Anion Gap Metabolic Acidosis, Resolving S/P Hyperkalemia Diabetes Mellitus Type 2 non-insulin dependent S/P Hypertensive Urgency Plan: - Renal function reviewed. Serum creatinine 4.3 today, yesterday's was 4.4. Exact Scr baseline unknown. Suspect underlying CKD due to HTN and DM. - Mild right hydronephrosis on renal ultrasound- S/P cysto, rpg, stent with short internal string on 06/12/19 by Urology- Dr. Johnson - Note to have positive urine eosinophils. ASA on hold. Secondary GN and vasculitis work up in progress, so far SKYLER-negative and Hep B and C negative. - No acute indication for initiation of HD today - Meatoblic Acidosis-On bicarb drip - Low potassium diet - Renally dose medications - Strict intake and output - Light Catheter: No - Upon discharge, patient is to follow-up with Nephrology in 3-5 days at [facility]: [address] [place] [id number], Subjective Date of service: 06/17/19 Principal diagnosis: LEONOR Interval history: Patient seen lying in bed. No family at bedside. Reviewed plan of care. Objective - Vital Signs Vital signs: Vital Signs - 12hr 06/17/19 06/17/19 06/17/19 04:38 08:00 09:18 Temperature 99.0 F 98.3 F Pulse Rate 98 H 101 H 101 H Pulse Rate [ From Monitor] Respiratory 18 18 Rate Blood Pressure 194/90 208/95 208/95 O2 Sat by Pulse 93 93 Oximetry 06/17/19 06/17/19 06/17/19 09:19 09:59 10:00 Temperature Pulse Rate 101 H Pulse Rate [ 99 H From Monitor] Respiratory Rate Blood Pressure 208/95 184/80 O2 Sat by Pulse 94 Oximetry 06/17/19 10:47 Temperature Pulse Rate Pulse Rate [ From Monitor] Respiratory Rate Blood Pressure 196/90 O2 Sat by Pulse Oximetry - General Appearance General appearance: well-developed, appears stated age, fatigue EENT: ATNC, PERRL, hearing intact, vision intact Neck: no JVD, supple Respiratory: Present: Decreased Breath Sounds Cardiology: S1S2 Gastrointestinal: normoactive bowel sounds Integumentary: warm and dry Neurologic: alert and oriented x3 Musculoskeletal: joint swelling Psychiatric: mood/affect appropriate - Lab 06/16/19 08:07 06/17/19 06:25 Most recent lab results ABG pH 7.279 pH Units (7.350-7.450) L 06/12/19 16:50 ABG pCO2 43.8 mm Hg 06/12/19 16:50 ABG pO2 62.6 mm Hg (80.0-90.0) L 06/12/19 16:50 ABG HCO3 20.0 mmol/L (20.0-26.0) 06/12/19 16:50 ABG O2 Saturation 92.7 % (95.0-99.0) L 06/12/19 16:50 Calcium 8.2 mg/dL (8.4-10.2) L 06/17/19 06:25 Phosphorus 4.10 mg/dL (2.5-4.5) 06/17/19 06:25 Magnesium 1.80 mg/dL (1.7-2.3) 06/11/19 05:37 Urine Creatinine 69.4 mg/dL (0.1-20.0) H 06/10/19 20:39 Urine Sodium 58 mmol/L 06/10/19 20:39 Urine Total Protein 97 mg/dL (5-11.8) H 06/10/19 20:39 Medications & Allergies - Medications Allergies/Adverse Reactions: Allergies No Known Allergies Allergy (Unverified 06/09/19 18:40) Home Medications: Home Medications Medication Instructions Recorded Confirmed Last Taken Type Aspirin [Aspirin BABY CHEW TAB] 81 mg PO QDAY 06/10/19 06/10/19 Unknown History Gabapentin 400 mg PO BID 06/10/19 06/10/19 Unknown History cloNIDine [Catapres] 0.2 mg PO BID 06/10/19 06/10/19 Unknown History Gabapentin 200 mg PO DAILY capsule 06/17/19 Unknown Rx Sodium Bicarbonate 150 meq IV DIRECT vial 06/17/19 Unknown Rx amLODIPine 10 mg PO DAILY@0800 #30 tablet 06/17/19 Unknown Rx hydrALAZINE [Apresoline TAB] 50 mg PO Q8HR tablet 06/17/19 Unknown Rx Active Medications: Generic Name Dose Route Start Last Admin Trade Name Freq PRN Reason Stop Dose Admin Acetaminophen 650 mg 06/10/19 02:20 Tylenol PO Q4H PRN Pain MILD(1-3)/Fever >100.5/MISHRA Amlodipine Besylate 10 mg 06/17/19 12:00 Amlodipine PO DAILY@0800 JONES Clonidine HCl 0.2 mg 06/10/19 10:00 06/17/19 09:19 Catapres PO 0.2 mg BID JONES Administration Dextrose 0 ml 06/10/19 04:10 D50w (25gm) Syringe IV Q30MIN PRN Hypoglycemia Protocol Enoxaparin Sodium 30 mg 06/10/19 10:00 06/17/19 09:19 Enoxaparin SUB-Q 30 mg QDAY JONES Administration Gabapentin 200 mg 06/11/19 10:00 06/17/19 09:19 Gabapentin PO 200 mg DAILY JONES Administration Hydralazine HCl 5 mg 06/12/19 04:07 06/17/19 08:26 Apresoline IV 5 mg Q4HR PRN Administration Blood Pressure Hydralazine HCl 50 mg 06/17/19 14:00 Apresoline PO Q8HR [facility] Sodium Bicarbonate 150 meq/ 1,150 mls @ 50 mls/hr 06/12/19 15:00 06/14/19 16:58 Dextrose IV 50 mls/hr DIRECT JONES Administration Insulin Human Lispro 0 unit 06/10/19 07:30 06/17/19 08:17 Humalog SUB-Q Not Given ACHS [facility] Protocol Ondansetron HCl 4 mg 06/10/19 02:20 Zofran IV Q8H PRN Nausea And Vomiting Oxycodone/Acetaminophen 1 tab 06/10/19 02:20 Percocet 5/325 PO Q6H PRN Pain, Moderate (4-6) Sodium Chloride 10 ml 06/10/19 10:00 06/17/19 09:19 Sodium Chloride Flush Syringe 10 Ml IV 10 ml BID JONES Administration Sodium Chloride 10 ml 06/10/19 02:20 Sodium Chloride Flush Syringe 10 Ml IV PRN PRN LINE FLUSH
[2019-06-17] MEDS ORDERED: hydrALAZINE 25 MG TAB PO SCH (14:00)
--- NOTE | 2019-06-17 16:39 | Fluoroscopy Report ---
INTRAOPERATIVE FLUOROSCOPY: RETROGRADE UROGRAPHY procedures dated 06/12/2019 INDICATION / CLINICAL INFORMATION: RT HYDRONEPHROSIS/UTI. TECHNIQUE: Intraoperative spot images were obtained during the procedure. FINDINGS: Presented for interpretation on 06/17/2019 Intraoperative spot images show contrast injection into the renal collecting systems. There is dilata tion of the right renal pelvis and right calyces. No discrete filling defect is identified in the rig ht ureter. There is a small filling defect in the mid left ureter which is not specific this could re present an air bubble in correlation with real-time intraoperative findings is necessary to distingui sh the etiology of this. Final image shows placement of double-J ureteral stent on the right. Fluoroscopy Time: 11 seconds. Fluoroscopy Images: 4. Signer Name: Edmund Lugo MD Signed: 06/17/2019 4:34 PM Workstation Name: [id number]
[2019-06-17 17:12] VITALS: BP 142/67
== END 2019-06-17 17:21 | DRG 987 ==
LOC: ED 18:29 → 4A 23:54
PROVIDERS: ADMIT Internal Medicine; ATTEND Hospitalist
PROC: 4A033R1 Measurement of Arterial Saturation, Peripheral, Percutaneous Approach (ICD-10-PCS; principal; 2019-06-12)
PROC: 0T778DZ Dilation of Left Ureter with Intraluminal Device, Via Natural or Artificial Opening Endoscopic (ICD-10-PCS; 2019-06-12)
PROC: 0TJB8ZZ Inspection of Bladder, Via Natural or Artificial Opening Endoscopic (ICD-10-PCS; 2019-06-12)
PROC: BT141ZZ Fluoroscopy of Kidneys, Ureters and Bladder using Low Osmolar Contrast (ICD-10-PCS; 2019-06-12)
PROC: 0T9B8ZZ Drainage of Bladder, Via Natural or Artificial Opening Endoscopic (ICD-10-PCS; 2019-06-12)
DX: E87.5 Hyperkalemia (principal); N17.0 Acute kidney failure with tubular necrosis; J18.9 Pneumonia, unspecified organism; J98.11 Atelectasis; J90 Pleural effusion, not elsewhere classified; N13.30 Unspecified hydronephrosis; I25.10 Atherosclerotic heart disease of native coronary artery without angina pectoris; E87.2 Acidosis; I10 Essential (primary) hypertension; E11.22 Type 2 diabetes mellitus with diabetic chronic kidney disease; I12.9 Hypertensive chronic kidney disease with stage 1 through stage 4 chronic kidney disease, or unspecified chronic kidney disease; N18.9 Chronic kidney disease, unspecified; M06.9 Rheumatoid arthritis, unspecified; E78.5 Hyperlipidemia, unspecified; N18.3 Chronic kidney disease, stage 3 (moderate); I16.0 Hypertensive urgency; E66.9 Obesity, unspecified; R79.89 Other specified abnormal findings of blood chemistry; Z79.4 Long term (current) use of insulin; Z79.82 Long term (current) use of aspirin; Z79.899 Other long term (current) drug therapy; I25.2 Old myocardial infarction; Z90.89 Acquired absence of other organs; Z82.49 Family history of ischemic heart disease and other diseases of the circulatory system; Z68.37 Body mass index [BMI] 37.0-37.9, adult; Z84.1 Family history of disorders of kidney and ureter
CPT/HCPCS: 36415; 36600; 71045; 71046; 74176; 74420; 76770; 80048; 80053; 81001; 82043; 82803; 82962; 83520; 83615; 83735; 83970; 84100; 84156; 84300; 84520; 85025; 85027; 85610; 85730; 86021; 86038; 86160; 86689; 86706; 86803; 87086; 87116; 89050; 93005; 93010; 94760; 96361; 96365; G0378; C1758; C1769; C2617; J0330; J0360; J0696; J1100; J1650; J1815; J2370; J2405; J2704; J3010; J7030; J7070; J7120; Q9967

== ENCOUNTER 2019-07-25 23:09 | Emergency (ER) | payer MEDICARE ==
--- NOTE | 2019-07-25 23:36 | Emergency Department Report ---
ED Fall HPI - General Chief Complaint: Extremity Injury, Upper Stated Complaint: GROUND LEVEL FALL Time Seen by Provider: 07/25/19 23:20 Source: patient, EMS Mode of arrival: Stretcher - History of Present Illness Initial Comments: 64-year-old female from [facility] custodial presents to ED status post fall. Patient states she fell out of the chair while attempting to stand up. Patient reports pain to the right shoulder. Patient reports she did hit her head. Denies LOC. MD Complaint: fall -: This evening Fall From: chair Place Fall Occurred: custodial/SNF Loss of Consciousness: none Symptoms Prior to Fall: none Location: head Location - Extremities: Right: Shoulder Severity: mild Associated Symptoms: denies: headache, neck pain - Related Data Home Medications Medication Instructions Recorded Confirmed Last Taken Aspirin [Aspirin BABY CHEW TAB] 81 mg PO QDAY 06/10/19 07/07/19 Unknown Gabapentin 400 mg PO BID 06/10/19 07/07/19 Unknown Fenofibrate Nanocrystallized 48 mg PO QDAY 07/07/19 07/07/19 Unknown [Fenofibrate] Insulin Aspart (Nf) [NovoLOG 0 unit SUB-Q ACHS 07/07/19 07/07/19 Unknown Flexpen] Latanoprost 0.005% 1 drop OU QDAY 07/07/19 07/07/19 Unknown Losartan Potassium 100 mg PO QDAY 07/07/19 07/07/19 Unknown Previous Rx's Medication Instructions Recorded Last Taken Type Gabapentin 200 mg PO DAILY capsule 06/17/19 Unknown Rx hydrALAZINE [Apresoline TAB] 50 mg PO Q8HR tablet 06/17/19 Unknown Rx amLODIPine 5 mg PO QDAY #30 tablet 07/21/19 Unknown Rx cloNIDine [Catapres] 0.1 mg PO Q12HR #30 tablet 07/21/19 Unknown Rx Allergies Allergy/AdvReac Type Severity Reaction Status Date / Time No Known Allergies Allergy Unverified 06/09/19 18:40 ED Review of Systems ROS: Stated complaint: GROUND LEVEL FALL Other details as noted in HPI Comment: All other systems reviewed and negative Musculoskeletal: as per HPI Neurological: denies: headache ED Past Medical Hx - Past Medical History Hx Hypertension: Yes (Pedal edema) Hx Heart Attack/AMI: No (Patient denied) Hx Congestive Heart Failure: No Hx Diabetes: Yes Hx Liver Disease: No Hx Renal Disease: Yes (Chronic Kidney Disease) Hx Arthritis: Yes Hx Asthma: No Hx COPD: No Hx HIV: No Additional medical history: Rheumatoid Arthritis - Surgical History Hx Pacemaker: No Hx Internal Defibrillator: No - Social History Smoking Status: Never Smoker Substance Use Type: None - Medications Home Medications: Home Medications Medication Instructions Recorded Confirmed Last Taken Type Aspirin [Aspirin BABY CHEW TAB] 81 mg PO QDAY 06/10/19 07/07/19 Unknown History Gabapentin 400 mg PO BID 06/10/19 07/07/19 Unknown History Gabapentin 200 mg PO DAILY capsule 06/17/19 07/07/19 Unknown Rx hydrALAZINE [Apresoline TAB] 50 mg PO Q8HR tablet 06/17/19 07/07/19 Unknown Rx Fenofibrate Nanocrystallized 48 mg PO QDAY 07/07/19 07/07/19 Unknown History [Fenofibrate] Insulin Aspart (Nf) [NovoLOG 0 unit SUB-Q ACHS 07/07/19 07/07/19 Unknown History Flexpen] Latanoprost 0.005% 1 drop OU QDAY 07/07/19 07/07/19 Unknown History Losartan Potassium 100 mg PO QDAY 07/07/19 07/07/19 Unknown History amLODIPine 5 mg PO QDAY #30 tablet 07/21/19 Unknown Rx cloNIDine [Catapres] 0.1 mg PO Q12HR #30 tablet 07/21/19 Unknown Rx ED Physical Exam - General Limitations: Altered Mental Status, Physical Limitation General appearance: alert, in no apparent distress - Head Head exam: Present: atraumatic, normocephalic - Eye Eye exam: Present: normal appearance - ENT ENT exam: Present: mucous membranes moist - Neck Neck exam: Present: normal inspection. Absent: tenderness - Respiratory Respiratory exam: Present: normal lung sounds bilaterally. Absent: respiratory distress - Cardiovascular Cardiovascular Exam: Present: regular rate, normal rhythm - GI/Abdominal GI/Abdominal exam: Present: soft. Absent: distended, tenderness - Extremities Exam Extremities exam: Present: other (mild tenderness to right shoulder; ROM is intact; no deformity noted) - Neurological Exam Neurological exam: Present: alert. Absent: oriented X3 (oriented to self and place) - Psychiatric Psychiatric exam: Present: normal affect, normal mood - Skin Skin exam: Present: warm, dry, intact, normal color ED Course Vital Signs 07/25/19 07/26/1920 23:23 00:00 01:00 Temperature 98.2 F Pulse Rate 73 Respiratory 16 Rate Blood Pressure 127/73 136/62 129/62 O2 Sat by Pulse 90 96 98 Oximetry ED Medical Decision Making - Radiology Data Radiology results: report reviewed, image reviewed - Medical Decision Making Head CT and shoulder x-ray were both negative for any acute injury. Patient will be discharged back to her custodial. - Differential Diagnosis Fracture, sprain, intracranial injury Critical care attestation.: If time is entered above; I have spent that time in minutes in the direct care of this critically ill patient, excluding procedure time. ED Disposition Clinical Impression: Fall, Closed head injury, Contusion of right shoulder Disposition: DC-01 TO HOME OR SELFCARE Is pt being admited?: No Condition: Stable Instructions: Fall Prevention for Older Adults (ED), Minor Head Injury (ED), Contusion in Adults (ED) Referrals: PRIMARY CARE, [Primary Care Provider] - 3-5 Days Time of Disposition: 00:49
--- NOTE | 2019-07-26 00:16 | Cat Scan Report ---
CT HEAD WITHOUT CONTRAST INDICATION / CLINICAL INFORMATION: fall, injury. TECHNIQUE: All CT scans at this location are performed using CT dose reduction for ALARA by means of automated e xposure control. COMPARISON: None available. FINDINGS: HEMORRHAGE: None. EXTRA-AXIAL SPACES: Mildly prominent likely related to mild cortical atrophy. VENTRICULAR SYSTEM: Normal in size and morphology for the patient's age. CEREBRAL PARENCHYMA: Scattered white matter hypodensities likely related to microangiopathy. No acute territorial infarct. MIDLINE SHIFT OR HERNIATION: None. CEREBELLUM / BRAINSTEM: No significant abnormality. ORBITS: Normal as visualized. SOFT TISSUES of HEAD: No significant abnormality. CALVARIUM: No significant abnormality. PARANASAL SINUSES / MASTOID AIR CELLS: Normal as visualized. ADDITIONAL FINDINGS: None. IMPRESSION: 1. No acute intracranial abnormality. Signer Name: Delma Cerna MD Signed: 07/26/2019 12:11 AM Workstation Name: [id number]
--- NOTE | 2019-07-26 00:26 | XRay Report ---
RIGHT SHOULDER 3 VIEW(S) INDICATION / CLINICAL INFORMATION: fall, injury COMPARISON: None available. FINDINGS: BONES / JOINT(S): No acute fracture or subluxation. 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 SOFT TISSUES: Mild soft tissue swelling of the lateral shoulder. ADDITIONAL FINDINGS: None. Signer Name: Delma Cerna MD Signed: 07/26/2019 12:22 AM Workstation Name: [id number]
[2019-07-26 05:37] VITALS: BP 146/66
== END 2019-07-26 05:49 | disposition home or self-care (01) ==
LOC: ED 23:09
DX: S40.011A Contusion of right shoulder, initial encounter (principal); S09.90XA Unspecified injury of head, initial encounter; M06.80 Other specified rheumatoid arthritis, unspecified site; E13.22 Other specified diabetes mellitus with diabetic chronic kidney disease; I12.9 Hypertensive chronic kidney disease with stage 1 through stage 4 chronic kidney disease, or unspecified chronic kidney disease; N18.9 Chronic kidney disease, unspecified; Z79.4 Long term (current) use of insulin; Z79.899 Other long term (current) drug therapy; X58.XXXA Exposure to other specified factors, initial encounter; Y93.89 Activity, other specified; Y92.89 Other specified places as the place of occurrence of the external cause; Y99.8 Other external cause status
CPT/HCPCS: 70450

== ENCOUNTER 2019-07-26 20:08 | Emergency (ER) | payer MEDICARE ==
[2019-07-26] MEDS ORDERED: NORepinephrine/NS 4 MG-250 ML 4 MG/250 ML BAG IV ONE (20:18)
[2019-07-26] MEDS: NORepinephrine/NS 4 MG-250 ML 4 MG/250 ML BAG IV SCH (20:30)
--- NOTE | 2019-07-26 20:55 | Emergency Department Report ---
ED CPR HPI - General Chief Complaint: Cardiac Arrest/CPR Stated Complaint: CARDIAC ARREST Time Seen by Provider: 07/26/19 20:25 Source: EMS Mode of arrival: Stretcher Limitations: Physical Limitation - History of Present Illness Initial Comments: 64-year-old female presents from [facility] status post cardiac arrest. Unknown downtime. intermediate staff states they were doing rounds and found patient unresponsive. EMS arrived and found patient in asystole. ACLS was initiated. Patient then went into PEA. Patient received 4 rounds of epi w/ ROSC achieved. Accu-Chek was 249. EMS states pt was last dialyzed 2 days ago. Patient was actually seen by me on last night after being sent to the ED following a fall from a chair. At that time patient reported that she does not really walk and her only complaint was right shoulder pain from her fall. Patient was awake and alert with good mentation at that time. She had a CT head and shoulder x-ray on yesterday which were both normal. MD Complaint: found unresponsive -: unknown Place: NH/SNF Shock Advised: No Initial Findings in the Field: unresponsive, no respirations, no pulse, other rhythm (ASYSTOLE) ROSC in the Field: Yes Treatments Prior to Arrival: intubation, chest compressions, epinephrine mgs # (4) - Related Data Home Medications Medication Instructions Recorded Confirmed Last Taken Aspirin [Aspirin BABY CHEW TAB] 81 mg PO QDAY 06/10/19 07/07/19 Unknown Gabapentin 400 mg PO BID 06/10/19 07/07/19 Unknown Fenofibrate Nanocrystallized 48 mg PO QDAY 07/07/19 07/07/19 Unknown [Fenofibrate] Insulin Aspart (Nf) [NovoLOG 0 unit SUB-Q ACHS 07/07/19 07/07/19 Unknown Flexpen] Latanoprost 0.005% 1 drop OU QDAY 07/07/19 07/07/19 Unknown Losartan Potassium 100 mg PO QDAY 07/07/19 07/07/19 Unknown Previous Rx's Medication Instructions Recorded Last Taken Type Gabapentin 200 mg PO DAILY capsule 06/17/19 Unknown Rx hydrALAZINE [Apresoline TAB] 50 mg PO Q8HR tablet 06/17/19 Unknown Rx amLODIPine 5 mg PO QDAY #30 tablet 07/21/19 Unknown Rx cloNIDine [Catapres] 0.1 mg PO Q12HR #30 tablet 07/21/19 Unknown Rx Allergies Allergy/AdvReac Type Severity Reaction Status Date / Time No Known Allergies Allergy Unverified 06/09/19 18:40 ED Review of Systems ROS: Stated complaint: CARDIAC ARREST Other details as noted in HPI Comment: Unobtainable due to pts medical conditions (CARDIAC ARREST) ED Past Medical Hx - Past Medical History Previous Medical History?: Yes Hx Hypertension: Yes (Pedal edema) Hx Heart Attack/AMI: No (Patient denied) Hx Congestive Heart Failure: No Hx Diabetes: Yes Hx Liver Disease: No Hx Renal Disease: Yes (Chronic Kidney Disease) Hx Arthritis: Yes Hx Asthma: No Hx COPD: No Hx HIV: No Additional medical history: Rheumatoid Arthritis - Surgical History Past Surgical History?: No Hx Pacemaker: No Hx Internal Defibrillator: No - Social History Smoking Status: Unknown if ever smoked - Medications Home Medications: Home Medications Medication Instructions Recorded Confirmed Last Taken Type Aspirin [Aspirin BABY CHEW TAB] 81 mg PO QDAY 06/10/19 07/07/19 Unknown History Gabapentin 400 mg PO BID 06/10/19 07/07/19 Unknown History Gabapentin 200 mg PO DAILY capsule 06/17/19 07/07/19 Unknown Rx hydrALAZINE [Apresoline TAB] 50 mg PO Q8HR tablet 06/17/19 07/07/19 Unknown Rx Fenofibrate Nanocrystallized 48 mg PO QDAY 07/07/19 07/07/19 Unknown History [Fenofibrate] Insulin Aspart (Nf) [NovoLOG 0 unit SUB-Q ACHS 07/07/19 07/07/19 Unknown History Flexpen] Latanoprost 0.005% 1 drop OU QDAY 07/07/19 07/07/19 Unknown History Losartan Potassium 100 mg PO QDAY 07/07/19 07/07/19 Unknown History amLODIPine 5 mg PO QDAY #30 tablet 07/21/19 Unknown Rx cloNIDine [Catapres] 0.1 mg PO Q12HR #30 tablet 07/21/19 Unknown Rx ED Physical Exam - General Limitations: Physical Limitation General appearance: obtunded - Head Head exam: Present: atraumatic - Eye Eye exam: Present: normal appearance, PERRL - ENT ENT exam: Present: mucous membranes moist, other (ET tube in place) - Neck Neck exam: Present: normal inspection - Respiratory Respiratory exam: Present: decreased breath sounds - Cardiovascular Cardiovascular Exam: Present: regular rate, normal rhythm - GI/Abdominal GI/Abdominal exam: Present: soft. Absent: distended - Extremities Exam Extremities exam: Present: normal inspection - Back Exam Back exam: Present: normal inspection - Neurological Exam Neurological exam: Present: other (GCS= 4) - Skin Skin exam: Present: warm, dry, intact ED Course Vital Signs 07/26/19 07/26/19 07/26/19 16:36 20:20 20:30 Temperature Pulse Rate 56 L 64 Respiratory 19 20 20 Rate Blood Pressure 67/37 133/64 O2 Sat by Pulse 97 99 Oximetry 07/26/19 07/26/19 07/26/19 20:35 20:36 20:41 Temperature 93.7 F L Pulse Rate 61 61 Respiratory 20 Rate Blood Pressure 133/64 67/37 O2 Sat by Pulse 100 100 Oximetry 07/26/19 07/26/19 07/26/19 20:51 21:00 21:11 Temperature Pulse Rate 58 L 62 55 L Respiratory 20 20 19 Rate Blood Pressure 135/65 131/64 131/64 O2 Sat by Pulse 100 100 100 Oximetry 07/26/19 07/26/19 07/26/19 21:21 21:30 21:41 Temperature Pulse Rate 55 L 56 L 54 L Respiratory 19 20 20 Rate Blood Pressure 100/52 72/42 72/42 O2 Sat by Pulse 100 100 100 Oximetry 07/26/19 07/26/19 07/26/19 21:51 22:00 22:11 Temperature Pulse Rate 56 L 57 L 60 Respiratory 15 13 8 L Rate Blood Pressure 125/56 122/57 122/57 O2 Sat by Pulse 100 99 100 Oximetry 07/26/19 07/26/19 07/26/19 22:21 22:30 22:41 Temperature Pulse Rate 59 L 60 59 L Respiratory 15 18 14 Rate Blood Pressure 152/56 180/54 180/54 O2 Sat by Pulse 100 98 100 Oximetry 07/26/19 07/26/19 07/26/19 22:51 23:01 23:11 Temperature Pulse Rate 57 L 56 L 56 L Respiratory 10 L 7 L 16 Rate Blood Pressure 152/56 185/56 135/112 O2 Sat by Pulse 100 98 Oximetry 07/26/19 07/26/19 07/27/19 23:20 23:23 00:05 Temperature Pulse Rate 56 L 56 L 56 L Respiratory 15 14 15 Rate Blood Pressure 154/58 154/58 154/58 O2 Sat by Pulse 96 99 97 Oximetry 07/27/19 07/27/19 07/27/19 00:11 00:12 00:21 Temperature Pulse Rate 57 L 57 L 71 Respiratory 14 13 Rate Blood Pressure 154/58 131/59 O2 Sat by Pulse 99 99 99 Oximetry 07/27/19 07/27/19 07/27/19 00:31 00:41 00:51 Temperature Pulse Rate 57 L 57 L 57 L Respiratory 11 L 15 16 Rate Blood Pressure 90/53 90/53 98/62 O2 Sat by Pulse 98 99 99 Oximetry 07/27/19 07/27/19 07/27/19 01:00 01:11 01:21 Temperature Pulse Rate 57 L 58 L 57 L Respiratory 18 21 19 Rate Blood Pressure 98/55 98/55 111/60 O2 Sat by Pulse 99 100 99 Oximetry 07/27/19 07/27/19 07/27/19 01:30 01:41 01:51 Temperature Pulse Rate 57 L 57 L 58 L Respiratory 20 20 20 Rate Blood Pressure 130/59 130/59 135/64 O2 Sat by Pulse 98 100 100 Oximetry 07/27/19 07/27/19 07/27/19 02:00 02:11 02:21 Temperature Pulse Rate 59 L 58 L 59 L Respiratory 20 19 22 Rate Blood Pressure 143/65 143/65 94/49 O2 Sat by Pulse 98 99 99 Oximetry 07/27/19 07/27/19 07/27/19 02:29 02:30 02:40 Temperature 94.3 F L Pulse Rate 58 L 59 L Respiratory 22 22 Rate Blood Pressure 86/51 86/51 O2 Sat by Pulse 98 100 Oximetry 07/27/19 07/27/19 07/27/19 02:51 03:00 03:11 Temperature Pulse Rate 60 60 61 Respiratory 20 22 23 Rate Blood Pressure 137/62 147/67 147/67 O2 Sat by Pulse 100 98 100 Oximetry 07/27/19 07/27/19 07/27/19 03:21 03:31 03:41 Temperature Pulse Rate Respiratory 22 21 23 Rate Blood Pressure 156/66 156/68 156/68 O2 Sat by Pulse 100 98 100 Oximetry 07/27/19 07/27/19 03:51 04:00 Temperature Pulse Rate Respiratory 22 22 Rate Blood Pressure 153/66 152/64 O2 Sat by Pulse 100 99 Oximetry - Reevaluation(s) Reevaluation #1: 07/26/19 21:10 Previous admission from 07/07/2019 reviewed. Patient was admitted for hypoxia secondary to pleural effusions and elevated potassium. Patient underwent thoracentesis during that admission. She was also tested for COVID on 07/10/2019. Result of COVID tested and found to be NEGATIVE on 07/20/2019. Patient was [facility] back to her [facility] the next day on 07/21/2019. Reevaluation #2: 07/27/19 01:40 CT shows L1-2 distraction injury. Called [facility] and spoke w/ pt's night nurse. She is unsure if pt had a fall today. She took care of pt on yesterday, 07/24, when she was sent in for fall. States when pt returned back to [facility], pt was fine, did not complain of back pain. States pt has been nonambulatory since her last admission when she was discharged earlier this month. She states there was a note earlier that pt became unresponsive at 2 PM on 07/25. EMS was called out and they "stabilized" the pt. Then later at 6:45 PM, pt was found unresponsive again and found to be in cardiac arrest and transported to the ED. - Consultations Consultation #1: 07/27/19 02:31 Spoke w/ Dr Avila, trauma attending at [facility]. Will accept transfer. - Central Line Placement Right Femoral Consent Obtained: emergent situation Time Out Performed: Yes Patient Placed on Monitor/Pulse Ox: Yes MD Prep: mask, gown, gloves Central Line Prep: Chlorhexidine scrub Central Line Lumen Inserted: triple Bloods Obtained for Lab: Yes Central Line Position: good blood return, sutured in place with nyl Dressing Applied: Tegaderm Patient Tolerated Procedure: well Complications: none ED Medical Decision Making - Lab Data Result diagrams: 07/26/19 Unknown 07/26/19 Unknown - EKG Data -: EKG Interpreted by Me EKG shows normal: sinus rhythm Rate: bradycardia (rate 56) - EKG Data Interpretation: other (anterior T wave inversion) - Radiology Data Radiology results: report reviewed, image reviewed - Medical Decision Making - s/p cardiac arrest, unknown downtime, ROSC in the field - pt hypotensive, femoral line placed, levophed initiated - labs show elevated WBCs, sepsis protocol initiated, antibiotics and IV fluids given - troponin elevated, EKG shows no acute ST changes; cardiac arrest and ESRD likely also contribute to this elevation - there was mild elevation in the potassium; pt was given calcium gluconate, insulin, D50 - CT Head negative; on neuro exam pt only intermittently flexes at the neck; no meaningful movements; GCS 4T - CXR shows bibasilar opacities unchanged from last admission last month when pt underwent thoracentesis for pleural effusions - LFT's elevated, so CT Abd/ Pelvis ordered which shows distraction injury at L1-L2 - I spoke to the nurse at [facility] and it is unclear if pt had another fall since her ED visit on last night (Saturday); at that time, pt only complained of left shoulder pain, did not have any back pain - according to the [facility] nurse, pt had an unresponsive episode documented at 2 PM on Saturday and then again at 6:45 PM which is when pt was found to be in cardiac arrest; no documentation of any trauma - low likelihood that this CT finding has contributed to her cardiac arrest - I spoke w/ Dr Avila, trauma attending at [facility], who has agreed to accept the patient in transfer - Differential Diagnosis ACS, arrythmia, sepsis Critical Care Time: Yes Critical care time in (mins) excluding proc time.: 35 Critical care attestation.: If time is entered above; I have spent that time in minutes in the direct care of this critically ill patient, excluding procedure time. Critical Care Time: 35 min ED Disposition Clinical Impression: Cardiac arrest, Hyperkalemia, Elevated troponin, Elevated liver enzymes, Lumbar spine instability, SIRS (systemic inflammatory response syndrome), Bilateral pleural effusion Disposition: [id number] ANOTHER TYPE [facility]THCARE Is pt being admited?: No Condition: Stable Referrals: LEILANI ORTEGA MD [Referring] - 3-5 Days Time of Disposition: 02:30
[2019-07-26 21:04] LABS: Hemoglobin 9.1 gm/dl (10.1-14.3); Mean Corpuscular HGB Conc 31 % (30-34); Mean Corpuscular Volume 94 fl (79-97); Platelet Count 376 K/mm3 (140-440); Red Blood Count 3.09 M/mm3 (3.65-5.03); Red Cell Distribution Width 15.3 % (13.2-15.2)
[2019-07-26] MEDS ORDERED: SODIUM CHLORIDE 0.9% 1000 ML IV SOLN IV ONE (21:13)
[2019-07-26 21:14] LABS: INR 1.28 (0.87-1.13)
[2019-07-26 21:15] LABS: Partial Thromboplastin Time 22.4 Sec. (24.2-36.6)
[2019-07-26 21:20] LABS: Alanine Aminotransferase 363 units/L (7-56); Albumin 2.5 g/dL (3.9-5); BUN/Creatinine Ratio 6; Blood Urea Nitrogen 33 mg/dL (7-17); Calcium 7.8 mg/dL (8.4-10.2); Hemolysis Index 24
[2019-07-26 21:29] LABS: Bilirubin,Direct < 0.2 mg/dL (0-0.2)
[2019-07-26 21:29] LABS: ABG Base Excess -3.8 mmol/L (-2.0-3.0); ABG HCO3 22.3 mmol/L (20.0-26.0); ABG Methemoglobin 0.6 % (0.0-1.5); ABG Oxygen Saturation 97.7 % (95.0-99.0); ABG PCO2 44.7 mm Hg; ABG PH 7.315 pH Units (7.350-7.450); ABG PO2 108.8 mm Hg (80.0-90.0)
[2019-07-26] MEDS ORDERED: CALCIUM GLUCONATE 1,000 MG in SODIUM CHLORIDE 0.9% 100 ML IV ONE (21:32)
[2019-07-26] MEDS ORDERED: INSULIN REGULAR, HUMAN 100 UNITS/1 ML IV ONE (21:32)
[2019-07-26] MEDS ORDERED: DEXTROSE 50% IN WATER (25GM) 50 ML SYRINGE IV ONE (21:32)
[2019-07-26 21:43] LABS: Basophils % (Manual) 0 % (0.0-1.8); RBC Morphology Normal; Total Cells Counted 100
[2019-07-26] MEDS ORDERED: CEFEPIME/NS 2 GM/100 ML 2 GM/100 ML BAG IV ONE (21:46)
[2019-07-26] MEDS ORDERED: VANCOMYCIN/NS 1 GM/250 ML 1 GM/250 ML BAG IV ONE (21:46)
--- NOTE | 2019-07-26 21:54 | XRay Report ---
CHEST 1 VIEW, 07/26/2019 9:20 PM CLINICAL INFORMATION/INDICATION: Cardiac arrest COMPARISON: Chest radiograph, 07/17/2019 FINDINGS: SUPPORT DEVICES: Dual lumen central catheter projects in stable position. An endotracheal tube is pre sent with tip approximately 4 cm above the level of the bear. An esophagogastric tube is also prese nt with distal end below the level of the diaphragm. HEART: The cardiac silhouette is normal in size. LUNGS/PLEURA: Bibasilar pleuroparenchymal disease does not appear significantly changed. No pneumotho rax is visualized. ADDITIONAL FINDINGS: No additional acute findings. IMPRESSION: 1. Interval placement of endotracheal tube and esophagogastric tube as above. 2. Stable appearance of bibasilar pleuroparenchymal opacities. Signer Name: Kavita Pruitt MD Signed: 07/26/2019 9:50 PM Workstation Name: [id number]
[2019-07-26] MEDS ORDERED: VANCOMYCIN 1,250 MG in SODIUM CHLORIDE 0.9% 250ML 250 ML IV ONE (22:00)
[2019-07-26 22:30] LABS: Chol/HDL Ratio 2.65 %; HDL Cholesterol 41 mg/dL (40-59); LDL Cholesterol,Direct 53 mg/dL (50-130)
[2019-07-27] MEDS: NORepinephrine/NS 4 MG-250 ML 4 MG/250 ML BAG IV SCH (00:24)
--- NOTE | 2019-07-27 00:33 | Cat Scan Report ---
CT HEAD WITHOUT CONTRAST INDICATION / CLINICAL INFORMATION: Post-Cardiac Arrest Found down at the [facility]. E.M.S. states pt was asystole. TECHNIQUE: All CT scans at this location are performed using CT dose reduction for ALARA by means of automated e xposure control. COMPARISON: CT dated 07/25/19 FINDINGS: HEMORRHAGE: None. EXTRA-AXIAL SPACES: Normal in size and morphology for the patient's age. VENTRICULAR SYSTEM: Normal in size and morphology for the patient's age. CEREBRAL PARENCHYMA: Scattered white matter hypodensities are unchanged. No acute territorial infarct . MIDLINE SHIFT OR HERNIATION: None. CEREBELLUM / BRAINSTEM: No significant abnormality. ORBITS: Normal as visualized. SOFT TISSUES of HEAD: No significant abnormality. CALVARIUM: No significant abnormality. PARANASAL SINUSES / MASTOID AIR CELLS: Normal as visualized. ADDITIONAL FINDINGS: None. IMPRESSION: 1. No acute intracranial abnormality. 2. Chronic and age-related findings, unchanged. Signer Name: Delma Cerna MD Signed: 07/27/2019 12:29 AM Workstation Name: [id number]
--- NOTE | 2019-07-27 01:20 | Cat Scan Report ---
CT ABDOMEN AND PELVIS WITHOUT CONTRAST INDICATION / CLINICAL INFORMATION: Post-Cardiac Arrest, elevated liver enzymes.. TECHNIQUE: Axial CT images were obtained through the abdomen and pelvis without IV contrast. All CT scans at is location are performed using CT dose reduction for ALARA by means of automated exposure control. COMPARISON: CT dated 06/11/19 FINDINGS: LOWER CHEST: Interval enlargement of bilateral pleural effusions, right greater than left. Interval i ncrease in bibasilar parenchymal densities, especially in the left lung base. LIVER: No significant abnormality. GALLBLADDER: No significant abnormality. BILE DUCTS: No significant abnormality. PANCREAS: No significant abnormality. SPLEEN: No significant abnormality. ADRENALS: No significant abnormality. RIGHT KIDNEY and URETER: Interval placement of right ureteral stent in expected position. All persist ent right hydronephrosis. Small nonobstructing intrarenal stones. Several right renal cysts are uncha nged. LEFT KIDNEY and URETER: No stones or hydronephrosis. Small left renal cysts are unchanged. STOMACH and SMALL BOWEL: Esophagogastric tube is present in the stomach. Small bowel is not dilated. COLON: No significant abnormality. APPENDIX: No significant abnormality. PERITONEUM: Small amount of free fluid throughout the abdomen and pelvis. No free air. No fluid colle ction. LYMPH NODES: No significant adenopathy. AORTA and ARTERIES: Mild atherosclerotic calcification without acute abnormality. IVC and VEINS: No significant abnormality. URINARY BLADDER: Distal end of a right ureteral stent is present in the bladder. No acute abnormality . REPRODUCTIVE ORGANS: No significant abnormality. ADDITIONAL FINDINGS: None. SKELETAL SYSTEM: There is no significant interval distraction and widening of the L1-2 disc space bes t seen on sagittal image 72. There is 3.3 cm of widening of the disc space measured on this image. Th ere is disruption of the posterior elements at this level as well as seen on sagittal image 75. IMPRESSION: 1. Interval enlargement of bilateral pleural effusions and bibasilar densities. 2. No inflammatory process or bowel obstruction. 3. Interval placement of right ureteral stent with mild persistent right hydronephrosis. 4. Small amount of free fluid in the abdomen or pelvis. 5. Significant interval widening of the L1-2 disc space likely represents injury/fracture of a rigid spine. This should be considered a potentially unstable injury. Neurosurgical consultation is recomme nded. Signer Name: Delma Cerna MD Signed: 07/27/2019 1:16 AM Workstation Name: [id number]
[2019-07-27 04:11] VITALS: BP 152/64
== END 2019-07-27 04:25 | disposition other institution (70) ==
LOC: ED 20:08
DX: I46.9 Cardiac arrest, cause unspecified (principal); R65.10 Systemic inflammatory response syndrome (SIRS) of non-infectious origin without acute organ dysfunction; J90 Pleural effusion, not elsewhere classified; E87.5 Hyperkalemia; M53.2X6 Spinal instabilities, lumbar region; R74.8 Abnormal levels of other serum enzymes; R79.89 Other specified abnormal findings of blood chemistry
CPT/HCPCS: 36415; 36556; 70450; 71045; 74176; 80048; 80061; 80076; 82140; 82803; 84484; 85007; 85025; 85610; 85730; 87040; 87070; 87205; 93005; 93010; 96365; 96366; 96368; 96375; 99291; J0610; J0692; J3370; J7030; J7050; 31500; 94002; 96367; J1815